=== PATIENT | male | born 1930 | race Caucasian/White ===

== ENCOUNTER 2017-01-14 09:43 | Inpatient (IN) ==
[~2017-01-14 09:43] MED LIST: SODIUM CHLORIDE 0.9% 1,000 ML IV SCH
--- NOTE | 2017-01-14 12:20 | History and Physical Update ---
Sedation H&P Update - History and Physical H&P was reviewed, the patient examined and there: are no changes in the patients condition since last H&P was completed. - Dictation Physical: refer to scanned H&P - Physical Exam Mental Status: alert and oriented Heart: regular rate and rhythm Lung: clear to auscultation Abdomen: within normal limits Vitals: within normal limits - Sedation Plan for Sedation: moderate Patient Consent: Procedure disscussed with patient and patinet has consented., Risks and benefits were discussed with patient,including infection,, bleeding, injury to surrounding structures, seizure, temporary nerve, Patient understands and accepts potential risks/benefits and agrees to, proceed. ASA Class: II Airway Assessment: Class II: Soft palate, uvula, fauces visible
[2017-01-14] MEDS ORDERED: MEPERIDINE 25 MG/1 ML VIAL ONE ×2 (12:26→12:29)
[2017-01-14] MEDS ORDERED: MIDAZOLAM 10 MG/2 ML VIAL ONE (12:27)
--- NOTE | 2017-01-14 12:54 | Event Note ---
Event note Synchronized cardioversion procedure Preop diagnosis recurrent atrial fibrillation Postop diagnosis same The patient was reloaded with amiodarone and takes Coumadin for chronic anticoagulation. The cardioversion procedure discussed with the patient and with his Augusta at the office and again at the hospital. All questions answered and consent form was signed. Continuous O2 sat monitoring was performed. The patient received a total dose of 3 mg IV Versed to achieve and maintain adequate anesthesia. Apical and sternal patches were placed. Using the biphasic Zoll synchronized cardioversion achieved with 200 J. He promptly returned to steady sinus rhythm. Unfortunately, he went back in atrial fibrillation. A second synchronized cardioversion with 200 J was done and he converted to sinus rhythm. However, in less than 5 minutes he went back into atrial fib. Blood pressure 164/72 pulses 70-80 and irregular O2 sat 96% on 2 L. He is beginning to lighten. There were no obvious complications. Plan Admit to telemetry IV amiodarone Then make another attempt at cardioversion. This patient will need a dual- chamber pacemaker with ATP capabilities for backup rate support. He has a long history of developing marked sinus bradycardia when on amiodarone. Findings discussed with patient's Augusta and daughter Carmen.
--- NOTE | 2017-01-14 13:01 | Cardiology History & Physical ---
History of Present Illness History of present illness: History and physical 86-year-old man with sick sinus syndrome and history of recurrent atrial fibrillation. He presented today for synchronized cardioversion. He was successfully cardioverted, but would not hold, and went back into atrial fibrillation. This patient has developed medication induced bradycardia which is necessary to maintain sinus rhythm. He will need a pacemaker implant for backup rate support once sinus rhythm has been restored. The plan is to admit for IV amiodarone and then make another cardioversion attempt and then proceed with dual-chamber pacemaker. The patient has symptomatic bradycardia while on amiodarone and he is symptomatic with atrial fibrillation. 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 Status post right carotid endarterectomy by Dr. Quach September 2012. He did have atrial fibrillation September 16, 2014 converted at the time of amiodarone with loading. Chronic GE reflux taking Nexium 40 mg daily. He avoids all bedtime snacks and has dinner by 6 PM. Status post two-vessel CABG November 25, 2007 with LEE graft to LAD, vein graft to the obtuse minor branch and vein graft to right coronary by Dr. Matta. Normal Lexiscan cardiac stress test October 18, 2016 ejection fraction 60%. Status post left knee arthroscopy October 31, 2016 at [facility] by Dr. Ayden redd. He developed postop atrial fib at that time. Remote tobacco abuse. History of cardioversion 3 remote tobacco abuse Chronic anticoagulation Chronic hypertension Plan Admit to telemetry IV amiodarone infusion, then cardioversion Then proceed with dual-chamber pacemaker for backup rate support Home Medications Medication Instructions Recorded Confirmed Type Amiodarone HCl 200 mg PO BID 12/12/14 01/14/17 History Aspirin [Ecotrin] 325 mg PO DAILY 12/12/14 01/14/17 History Ketoprofen 75 mg PO BID 12/12/14 01/14/17 History Nisoldipine 17 mg PO DAILY 12/12/14 01/14/17 History Potassium Chloride 10 meq PO DAILY 12/12/14 01/14/17 History Simvastatin 40 mg PO DAILY 12/12/14 01/14/17 History Warfarin [Coumadin] 2 mg PO DAILY@1800 12/12/14 01/14/17 History Minocycline [Minocin] 50 mg PO DAILY 01/13/17 01/14/17 History Polyvinyl Alcohol [Artificial 1 drop BOTH EYES DIRECTED 01/14/17 01/14/17 History Tears] Tear Support 3 tablet PO DAILY 01/14/17 01/14/17 History Valsartan/Hctz 160-12.5 [Diovan 1 tablet PO DAILY 01/14/17 01/14/17 History Hct 160-12.5] Allergies Allergy/AdvReac Type Severity Reaction Status Date / Time No Known Allergies Allergy Verified 06/05/16 08:30 Medical,Surgical,& Family Hx - Medical History Cardio: History of: Cardiac Dysrhythmia (A FIB), Hypertension, Cardiovascular Problems (CABG) Neurology: History of: Cerebrovascular Accident (LIGHT LT WEAKNESS), TIA ( SEVERAL) No history of: Seizures HEENT: History of: Ear Problem (BILATERAL HEARING AIDS), Eye Problem (GLASSES) Endocrine: History of: Dyslipidemia Gastrointestinal: History of: GERD, Polyps (1?) - Surgical History Cardiac Surgeries: Sugical HX of: Cardiac Catheterization HEENT Surgeries: Surgical HX of: Eye Surgery (BILATERAL CATARACT) Abdominal Surgeries: Surgical HX of: Appendectomy, Colonoscopy, Hernia Repair ( X2) - Family History Family History: Reports;: Family Heart Disease (FATHER [place],), Family Psychiatric Problems (FATHER, BROTHERS) - Social History Smoking Status: Former smoker Frequency of Alcohol Use: Frequently Type of Drug Use: None Cardiology Physical Exam - Constitutional Vitals: Vital Signs Pulse Resp BP Pulse Ox 75 20 171/87 98 01/14/17 11:20 01/14/17 11:20 01/14/17 11:20 01/14/17 11:20 Intake and Output 01/13/17 01/14/17 01/14/17 23:59 07:59 15:59 Other: Weight 75.75 kg Patient Weight 01/14/17 23:59 Weight 75.75 kg
[2017-01-14] MEDS ORDERED: AMIODARONE INJ 150 MG in DEXTROSE 5% 100 ML IV ONE (15:30)
[2017-01-14] MEDS ORDERED: AMIODARONE INJ 450 MG in DEXTROSE 5% 241 ML IV SCH ×2 (16:00→23:30)
[2017-01-14] MEDS ORDERED: CLORAZEPATE 3.75 MG TABLET PO PRN (17:04)
--- NOTE | 2017-01-14 17:10 | Electrophysiology Consultation ---
History of Present Illness - Data of Consult Patient: new to practice Consult date: 01/14/17 Requesting Physician: Ron Iglesias - Consult Narrative Reason for consult: AF, tachybrady History of present illness: Mr. Kendrick is a 86 year old male, followed by dr. Iglesias. H/o mildly symptomatic PAF, then persistent AF. Antiarrhythmic options were limited by baseline sinus bradycardia. He was admitted for cardioversion today, but had IRAF. IV amiodarone loading was started and he was admitted to telemetry. He had cardioversions before and he also converted back to sinus, in the past, with amiodarone loading. He had parietal lobe stroke August 2012, right carotid endarterectomy by Dr. Quach September 2012, GERD on PPI. CAD, status post two-vessel CABG November 25, 2007 with LEE graft to LAD, vein graft to the obtuse minor branch and vein graft to right coronary by Dr. Matta. Normal Lexiscan cardiac stress test October 18, 2016 ejection fraction 60%. Status post left knee arthroscopy October 31, 2016 at [facility] by Dr. Ayden redd. He developed postop atrial fib at that time. Remote tobacco abuse and he drinks ETOH regularly. HTN, controlled. Current and prior EKG shows sinus bradycardia, and atrial fibrillation. Normal QTC, anterolateral repolarization abnormalities. Mild ICVD, with poor RWP. He is feeling fine currently, amiodarone drip infusing, still in atrial fibrillation, heart rate well controlled. Has occasional lower extremity swelling, but otherwise he is able to perform regular activities. CC: Ron Iglesias MD - Home Medications and Allergies Home Medications: Home Medications Medication Instructions Recorded Confirmed Type Amiodarone HCl 200 mg PO BID 12/12/14 01/14/17 History Aspirin [Ecotrin] 325 mg PO DAILY 12/12/14 01/14/17 History Ketoprofen 75 mg PO BID 12/12/14 01/14/17 History Nisoldipine 17 mg PO DAILY 12/12/14 01/14/17 History Potassium Chloride 10 meq PO DAILY 12/12/14 01/14/17 History Simvastatin 40 mg PO DAILY 12/12/14 01/14/17 History Warfarin [Coumadin] 2 mg PO DAILY@1800 12/12/14 01/14/17 History Minocycline [Minocin] 50 mg PO DAILY 01/13/17 01/14/17 History Polyvinyl Alcohol [Artificial 1 drop BOTH EYES DIRECTED 01/14/17 01/14/17 History Tears] Tear Support 3 tablet PO DAILY 01/14/17 01/14/17 History Valsartan/Hctz 160-12.5 [Diovan 1 tablet PO DAILY 01/14/17 01/14/17 History Hct 160-12.5] Allergies/Adverse Reactions: Allergies Allergy/AdvReac Type Severity Reaction Status Date / Time No Known Allergies Allergy Verified 06/05/16 08:30 Medical,Surgical,& Family Hx - Medical History Cardio: History of: Cardiac Dysrhythmia (A FIB), Hypertension, Cardiovascular Problems (CABG) Neurology: History of: Cerebrovascular Accident (LIGHT LT WEAKNESS), TIA ( SEVERAL) No history of: Seizures HEENT: History of: Ear Problem (BILATERAL HEARING AIDS), Eye Problem (GLASSES) Endocrine: History of: Dyslipidemia Gastrointestinal: History of: GERD, Polyps (1?) - Surgical History Cardiac Surgeries: Sugical HX of: Cardiac Catheterization HEENT Surgeries: Surgical HX of: Eye Surgery (BILATERAL CATARACT) Abdominal Surgeries: Surgical HX of: Appendectomy, Colonoscopy, Hernia Repair ( X2) - Family History Family History: Reports;: Family Heart Disease (FATHER [place],), Family Psychiatric Problems (FATHER, BROTHERS) - Social History Smoking Status: Former smoker Frequency of Alcohol Use: Frequently Type of Drug Use: None 12 point system: reviewed and no additional remarkable complaints except as stated Exam - Constitutional Vitals: Period Temp Pulse Resp BP Sys/Castillo Pulse Ox Last 24 Hr 75 20 171/87 98 General appearance: normal weight, no acute distress - Head Head exam: Present: normal inspection, normocephalic - Eye Eye exam: Absent: conjunctival injection, scleral icterus Pupils: Absent: dilated - ENT ENT exam: Present: normal external ear exam - Neck Neck exam: Present: normal inspection - Respiratory Respiratory exam: Present: wheezes - Cardiovascular Cardiovascular exam: Present: irregular rhythm, systolic murmur. Absent: JVD - GI/Abdominal GI/Abdominal exam: Present: normal bowel sounds. Absent: distended - Extremities Exam Extremities exam: Present: normal inspection, normal capillary refill, edema (1+ ) - Back Exam Back exam: Present: normal inspection - Neurological Exam Neurological exam: Present: alert, oriented X3 - Psychiatric Psychiatric exam: Present: normal affect, normal mood - Skin Skin exam: Present: normal color, warm. Absent: cyanosis Results - Labs Lab Results: I have reviewed the past 24 hour labs Assessment and Plan (1) SSS (sick sinus syndrome) Status: Acute Current Visit: Yes (2) Persistent atrial fibrillation Status: Acute Assessment and plan: 86-year-old male, followed by Dr. Iglesias. Sick sinus syndrome, tachybradycardia , persistent, symptomatic atrial fibrillation. CAD, status post CABG, preserved ejection fraction. Hypertension, EtOH, hyperlipidemia, prior CVA. -Discussed risks and benefits of management options. We will plan to proceed with dual-chamber pacemaker implantation. Plan Fri PM, conscious sedation -Continue amiodarone loading, may switch to p.o. tomorrow. Keep on telemetry, history of symptomatic bradycardia -Chest x-ray. -Echo. Had IRAF after DCCV. If he has advanced atrial remodeling, long-term effective rhythm control may not be feasible and we could consider rate control approach -TFTs normal -Continue Coumadin. Plan to do the device implant at the lower edge of the therapeutic range. History of CVA. Follow INR daily -Tranxene as needed to prevent DT, regular ETOH Current Visit: Yes (3) CAD (coronary artery disease) Status: Acute Current Visit: Yes Specialty Discharge - Follow Up or Referrals
[2017-01-14 18:35] LABS: INR 2.4
[2017-01-14 18:38] LABS: PT Patient Result 26.4 SECS
[2017-01-14] MEDS: POLYVINYL ALCOHOL 1.4% OPH SOLN 15 ML BOTTLE BOTH EYES SCH (21:00)
[2017-01-15 05:54] LABS: Basophils % 0.2 % (0.0-0.8); Eosinophils # 0.2 10*3/uL (0.0-0.87); Eosinophils % 2.2 % (0.00-10.9); Hematocrit 43.8 VOL% (42.0-52.0); Immature Granulocytes % 0.5 %; Immature Granulocytes Absolute 0.05 #; Lymphocytes # 1.2 10*3/uL (1.4-4.0); Lymphocytes % 13.4 % (21.2-54.2); Mean Corpuscular HGB Conc 34.2 GM/DL (32-36); Mean Corpuscular Hemoglobin 33 PG (27-34); Mean Platelet Volume 12.2 FL (9.6-12.0); Monocytes # 0.9 10*3/uL (0.11-0.8); Monocytes % 9.4 % (1.7-12.7); Neutrophils # 6.8 10*3/uL (1.4-7.4); Neutrophils % 74.3 % (38.7-73.9); Platelet Count 165 T/CUMM (130-400); Red Blood Count 4.61 MC/CUMM (3.8-5.5); Red Cell Distribution Width 14.2 % (9.3-17.3); White Blood Count 9.2 T/CUMM (4-12)
[2017-01-15 06:14] LABS: INR 2.4
[2017-01-15 06:21] LABS: PT Patient Result 26.8 SECS
[2017-01-15 06:24] LABS: Calcium 8.7 MG/DL (8.5-10.1); Magnesium 2.3 MG/DL (1.8-2.4); Osmolality,Calculated 281.4 MOS/KG (273-304); Potassium 3.7 MMOL/L (3.5-5.1)
--- NOTE | 2017-01-15 07:14 | XRay Report ---
History: Preop pacemaker placement. On amiodarone therapy Date: 01/15/2017 Study: Chest x-ray PA and lateral Comparison exam: August 08, 2015 chest x-ray The cardiac silhouette is not enlarged. The mediastinal contours are unchanged from the previous study in this patient status post prior median sternotomy. There is mild aortic arch calcification. The pulmonary vasculature is not engorged. There is no pleural effusion. There is no acute infiltrate. There are old rib fractures on the right. There is moderate thoracic spondylosis. Impression: No acute cardiopulmonary process compared to the previous study. No adverse interval change PROCEDURE INTERPRETED AT [facility] DEPARTMENT OF RADIOLOGY Final Report Signed by: Dr. Elisa Pineda
--- NOTE | 2017-01-15 07:24 | EKG Report ---
Stationary ECG Study 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
--- NOTE | 2017-01-15 08:09 | EKG Report ---
Stationary ECG Study 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
--- NOTE | 2017-01-15 08:16 | Electrophysiology Progress Not ---
Assessment and Plan (1) SSS (sick sinus syndrome) Status: Acute Current Visit: Yes (2) Persistent atrial fibrillation Status: Acute Assessment and plan: 86-year-old male, followed by Dr. Iglesias. Sick sinus syndrome, tachybradycardia , persistent, symptomatic atrial fibrillation. CAD, status post CABG, preserved ejection fraction. Hypertension, EtOH, hyperlipidemia, prior CVA. TFTs normal 01/14: DCCV dr. Iglesias, IRAF -Continue Coumadin 1 mg nightly. Keep the INR at the lower edge of the therapeutic range. Plan to do the device implant on uninterrupted anticoagulation, history of CVA -Keep on telemetry. History of symptomatic bradycardia, now, moderate sinus bradycardia after pharmacological cardioversion. -Switch amiodarone to 400 mg p.o. twice daily. -Follow-up echo. -Plan for dual-chamber pacemaker implant Friday. Sick sinus syndrome , tachybradycardia. -Tranxene as needed to prevent DT, regular ETOH Current Visit: Yes (3) CAD (coronary artery disease) Status: Acute Current Visit: Yes Electrophysiology Subjective Interval history: He converted back to sinus bradycardia, with IV amiodarone. He is feeling fine. INR 2.4. Exam - Constitutional Vitals: Period Temp Pulse Resp BP Sys/Castillo Pulse Ox Last 24 Hr 97.4 F-98.3 F 49-75 16-20 120-173/59-87 96-100 General appearance: normal weight, no acute distress - Head Head exam: Present: normal inspection, normocephalic - Eye Eye exam: Absent: conjunctival injection, scleral icterus Pupils: Absent: dilated - ENT ENT exam: Present: normal external ear exam - Neck Neck exam: Present: normal inspection - Respiratory Respiratory exam: Present: clear to auscultation bilaterally. Absent: chest wall tenderness - Cardiovascular Cardiovascular exam: Present: regular rate and rhythm, systolic murmur. Absent : JVD - GI/Abdominal GI/Abdominal exam: Present: normal bowel sounds. Absent: distended - Extremities Exam Extremities exam: Present: normal inspection, normal capillary refill. Absent: edema - Back Exam Back exam: Present: normal inspection - Neurological Exam Neurological exam: Present: alert, oriented X3 - Psychiatric Psychiatric exam: Present: normal affect, normal mood. Absent: anxious - Skin Skin exam: Present: normal color, warm. Absent: cyanosis Results - Labs CBC & BMP: 01/15/17 05:22 01/15/17 05:22 Lab Results: I have reviewed the past 24 hour labs Specialty Discharge - Follow Up or Referrals
[2017-01-15] MEDS: AMIODARONE 200 MG TABLET PO SCH ×2 (08:19→20:25)
[2017-01-15] MEDS: VALSARTAN/HCTZ 160-12.5 MG TABLET PO SCH (08:19)
[2017-01-15] MEDS: NISOLDIPINE 17 MG PO SCH (08:19)
[2017-01-15] MEDS: POTASSIUM CHLORIDE 10 MEQ TABLET PO SCH (08:19)
[2017-01-15] MEDS: SIMVASTATIN 40 MG TABLET PO SCH (08:20)
[2017-01-15] MEDS ORDERED: ASPIRIN EC 325 MG TABLET PO SCH (09:00)
[2017-01-15] MEDS: POLYVINYL ALCOHOL 1.4% OPH SOLN 15 ML BOTTLE BOTH EYES SCH (14:44)
[2017-01-15] MEDS ORDERED: hydrALAZINE 20 MG/1 ML VIAL IV PRN (16:13)
--- NOTE | 2017-01-15 16:13 | Cardiology Progress Note ---
Shilo Burrell Lesley, ANITA, am scribing for, and in the presence of, Eleni Weston DO 16:13. Assessment and Plan - Time spent with patient Time spent with patient: Greater than 30 minutes (Due to assessment, plan, and documentation.) (1) Hypertension Status: Chronic Assessment and plan: SEE PLAN OF CARE LISTED BELOW Current Visit: No (2) SSS (sick sinus syndrome) Status: Acute Assessment and plan: SEE PLAN OF CARE LISTED BELOW Current Visit: Yes (3) Persistent atrial fibrillation Status: Acute Assessment and plan: SEE PLAN OF CARE LISTED BELOW Current Visit: Yes (4) CAD (coronary artery disease) Status: Chronic Assessment and plan: SEE PLAN OF CARE LISTED BELOW Current Visit: Yes Qualifiers: Coronary Disease-Associated Artery/Lesion type: [place] artery [place] vs. 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 Iglesias Summary: Mr. Kendrick is 86-year-old WM known to Dr. Iglesias. He has a history of sick sinus syndrome and persistent, symptomatic atrial fibrillation. The patient presented for cardioversion and was successfully cardioverted, but quickly returned to atrial fibrillation. 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 Matta. Lexiscan cardiac stress test 09/2016 was normal, with EF 60%. History of cardioversion 3, chronic anticoagulation, chronic hypertension, and GERD. Antiarrhythmic options have been limited by baseline sinus bradycardia. Patient was seen today sitting up in a chair. He denies complaints shortness of breath chest discomfort. He is scheduled for dual-chamber pacemaker to be performed by Dr. Weeks on 01/17/17. The patient has been converted from amiodarone drip to oral amiodarone and has tolerated this well. Echocardiogram is pending. Telemetry monitoring reveals sinus bradycardia and atrial fibrillation. Blood pressure is uncontrolled 177/79. Labs reviewed: H&H 15 and 43, INR 2.4 electrolytes WNL, creatinine 1.0. Chest x-ray is unchanged from previous and defines no acute cardiopulmonary process. ASSESSMENT/PLAN: 1. SICK SINUS SYNDROME -continue amiodarone, continue telemetry monitoring, anticipate dual-chamber pacemaker placement this week. 2. PERSISTENT ATRIAL FIBRILLATION -continue amiodarone, to need telemetry monitoring, continue Coumadin. 3. HYPERTENSION -uncontrolled, continue medications, monitor and adjust meds accordingly 4. DYSLIPIDEMIA -continue statin and cardiac diet. 5. CAD -continue aspirin, medical management. 6. ALCOHOL ABUSE -continue Tranxene. 7. CHRONIC ANTICOAGULATION -continue Coumadin monitor INRs. Mr. 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 He has a history of coronary artery disease in 2007 he received a bypass by Dr. Matta. He is followed out in outpatient clinic by my partner Dr. Iglesias he is here now for amiodarone to DC cardioversion after failed DC cardioversion with hopes of implanting a dual-chamber pacemaker on Friday by Dr. Heredia. This will be done on anticoagulation. The patient has no complaints at this time. He is back in sinus rhythm at this time sinus bradycardia. Exam (Progress Note) - Constitutional Vitals: Period Temp Pulse Resp BP Sys/Castillo Pulse Ox Last 24 Hr 97.4 F-98.3 F 49-68 16-18 120-177/59-82 95-100 Exam: General: Appears well with no apparent distress. Pleasant and cooperative. Appears comfortable. HEENT: PERRL, normocephalic, atraumatic. Mucous membranes moist. No jaundice noted. Conjunctiva moist and clear, sclerae anicteric. Neck: No JVD/HJR, no thyromegaly or lymphadenopathy noted. No carotid bruit appreciated. Cardiac: Irregular rate and rhythm. No murmur rub or gallop. PMI is nondisplaced. Lungs: Clear to auscultation without accessory muscle use to assist the respiratory pattern. No oxygen required Abdomen: Soft, bowel sounds normoactive. Nontender and nondistended. No abdominal bruit or thrill noted. No masses noted. Musculoskeletal: No fluid collection. Full range of motion is noted to all extremities. Extremities: No clubbing, cyanosis noted. No edema noted. Upper extremity pulses 2+. Lower extremity pulses 2+. Capillary refill less than 3 seconds. Skin: No unusual lesions or rashes. No skin breakdown appreciated. Neuro: Awake, alert and oriented 3. Moves all extremities well without hemiparesis or paralysis. No essential tremor is appreciated. Result/EKG - Labs CBC & BMP: 01/15/17 05:22 01/15/17 05:22 Lab Results: I have reviewed the past 24 hour labs Labs: Laboratory Results - last 24 hr 01/14/17 01/15/17 01/15/17 18:03 05:22 05:22 WBC 9.2 RBC 4.61 Hgb 15.0 Hct 43.8 MCV 95.0 MCH 33 MCHC 34.2 RDW 14.2 Plt Count 165 MPV 12.2 H Neut % (Auto) 74.3 H Lymph % (Auto) 13.4 L Baldwin % (Auto) 9.4 Eos % (Auto) 2.2 Baso % (Auto) 0.2 Neut # (Auto) 6.8 Lymph # (Auto) 1.2 L Baldwin # (Auto) 0.9 H Eos # (Auto) 0.2 Baso # (Auto) 0.0 Immature Gran % 0.5 Nucleated RBC % 0.0 Immature Gran # 0.05 Nucleated RBCs # 0.00 Immature Plt Fraction 0.0 INR 2.4 2.4 PT Patient/Control Mix 26.4 26.8 Sodium Potassium Chloride Carbon Dioxide Anion Gap BUN Creatinine GFR Calculation BUN/Creatinine Ratio Glucose Calculated Osmolality Calcium Magnesium 01/15/17 05:22 WBC RBC Hgb Hct MCV MCH MCHC RDW Plt Count MPV Neut % (Auto) Lymph % (Auto) Baldwin % (Auto) Eos % (Auto) Baso % (Auto) Neut # (Auto) Lymph # (Auto) Baldwin # (Auto) Eos # (Auto) Baso # (Auto) Immature Gran % Nucleated RBC % Immature Gran # Nucleated RBCs # Immature Plt Fraction INR PT Patient/Control Mix Sodium 140 Potassium 3.7 Chloride 106 Carbon Dioxide 25 Anion Gap 12.7 BUN 21 H Creatinine 1.00 GFR Calculation 73 BUN/Creatinine Ratio 21.00 H Glucose 107 H Calculated Osmolality 281.4 Calcium 8.7 Magnesium 2.3 - Diagnostic Findings Procedure: Chest x-ray: report reviewed by me - EKG EKG shows: atrial fibrillation (Left bundle branch block) Specialty Discharge - Follow Up or Referrals I, Eleni Weston DO, personally performed the services described in this documentation, ascribed by Ronel Lao NP in my presence, and it is both accurate and complete 613 .
[2017-01-15] MEDS ORDERED: WARFARIN 1 MG TABLET PO SCH (18:00)
--- NOTE | 2017-01-15 18:46 | ECHO Report ---
Hubert Kendrick Exam Date: 01/15/2017 09:29 Referring Physician: Technologist: brett Gonzalez ARDMS, RVT Age: 86 Ht (in): 68 Wt (lb): 167 Gender: M Exam Location: [facility] [place] Echo Indications: Essential (primary) hypertension, Atrial fibrillation BP: 173 / 82 HR: 53 Rhythm: Atrial fibrillation Technical Quality: IMPRESSIONS EF is estimated to be 65%. Normal diastolic filling pattern. Tricuspid regurgitation velocities suggest a RVSP of 39 mmHg plus the right atrial pressure. Mild pulmonary valve regurgitation with an end diastolic velocity of 1.5 m/sec. MEASUREMENTS (Male / Female) Normal Values 2D ECHO LV Diastolic Diameter PLAX 5.0 cm 4.2 - 5.9 / 3.9 - 5.3 cm LV Systolic Diameter PLAX 2.6 cm LV Fractional Shortening PLAX 48.4 % IVS Diastolic Thickness 1.0 cm 0.6 - 1.0 / 0.6 - 0.9 cm LVPW Diastolic Thickness 1.0 cm 0.6 - 1.0 / 0.6 - 0.9 cm RV Internal Dim ED PLAX 3.7 cm Aortic Root Diameter 3.3 cm LA Systolic Diameter LX 4.8 cm 3.0 - 4.0 / 2.7 - 3.8 cm DOPPLER TR Peak Velocity 311.0 cm/s TR Peak Gradient 38.7 mmHg FINDINGS Left Ventricle Normal left ventricular size, systolic function and wall thickness, with no regional wall motion abnormalities. EF is estimated to be 65%. Normal diastolic filling pattern. Right Ventricle The right ventricle is normal in size and function. Right Atrium The right atrium is mildly enlarged. Left Atrium The left atrium is mildly enlarged. Mitral Valve Morphologically normal mitral valve. Trace mitral valve regurgitation. Aortic Valve Morphologically normal aortic valve without significant sclerosis or stenosis. There is no aortic regurgitation. Tricuspid Valve Morphologically normal tricuspid valve. Mild tricuspid valve regurgitation. Tricuspid regurgitation velocities suggest a RVSP of 39 mmHg plus the right atrial pressure. Pulmonic Valve Morphologically normal pulmonic valve. Mild pulmonary valve regurgitation with an end diastolic velocity of 1.5 m/sec. Pericardium Normal pericardium without effusion. Aorta Normal ascending aorta dimension. Eleni Weston (Electronically Signed) Final Date: 15 January 2017 18:44
[2017-01-15] MEDS: LORazepam 0.5 MG TABLET PO SCH (20:25)
[2017-01-16 05:30] LABS: Basophils % 0.2 % (0.0-0.8); Eosinophils # 0.1 10*3/uL (0.0-0.87); Eosinophils % 0.9 % (0.00-10.9); Hematocrit 42.6 VOL% (42.0-52.0); Hemoglobin 14.6 GM/DL (14.0-18.0); Immature Granulocytes % 0.3 %; Immature Granulocytes Absolute 0.04 #; Lymphocytes # 1.4 10*3/uL (1.4-4.0); Lymphocytes % 11.6 % (21.2-54.2); Mean Corpuscular HGB Conc 34.3 GM/DL (32-36); Mean Corpuscular Hemoglobin 33 PG (27-34); Mean Corpuscular Volume 95.7 FL (87-102); Mean Platelet Volume 12.2 FL (9.6-12.0); Monocytes # 1.4 10*3/uL (0.11-0.8); Monocytes % 11.9 % (1.7-12.7); Neutrophils % 75.1 % (38.7-73.9); Platelet Count 174 T/CUMM (130-400); Red Blood Count 4.45 MC/CUMM (3.8-5.5); Red Cell Distribution Width 14.2 % (9.3-17.3)
[2017-01-16 05:58] LABS: INR 2.1
[2017-01-16 06:02] LABS: PT Patient Result 23.3 SECS
[2017-01-16 06:03] LABS: Magnesium 2.2 MG/DL (1.8-2.4); Osmolality,Calculated 282.3 MOS/KG (273-304); Potassium 3.7 MMOL/L (3.5-5.1)
[2017-01-16] MEDS ORDERED: ceFAZolin 1,000 MG VIAL IRRIG ONE (08:17)
--- NOTE | 2017-01-16 08:22 | EKG Report ---
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
--- NOTE | 2017-01-16 08:22 | History and Physical Update ---
Sedation H&P Update - History and Physical H&P was reviewed, the patient examined and there: are no changes in the patients condition since last H&P was completed. - Dictation Physical: refer to scanned H&P - Physical Exam Mental Status: alert and oriented Heart: other (bradycardic) Lung: clear to auscultation Abdomen: within normal limits Vitals: within normal limits - Sedation Plan for Sedation: moderate Patient Consent: Procedure disscussed with patient and patinet has consented., Risks and benefits were discussed with patient,including infection,, bleeding, injury to surrounding structures, seizure, temporary nerve, Patient understands and accepts potential risks/benefits and agrees to ASA Class: III Airway Assessment: Class II: Soft palate, uvula, fauces visible
[2017-01-16] MEDS: POTASSIUM CHLORIDE 10 MEQ TABLET PO SCH (08:52)
[2017-01-16] MEDS: NISOLDIPINE 17 MG PO SCH (08:52)
[2017-01-16] MEDS: SIMVASTATIN 40 MG TABLET PO SCH (08:52)
[2017-01-16] MEDS: LORazepam 0.5 MG TABLET PO SCH ×2 (08:52→20:57)
[2017-01-16] MEDS: VALSARTAN/HCTZ 160-12.5 MG TABLET PO SCH (08:52)
[2017-01-16] MEDS: ASPIRIN EC 81 MG TABLET PO SCH (08:52)
[2017-01-16] MEDS: AMIODARONE 200 MG TABLET PO SCH ×2 (08:54→20:58)
[2017-01-16] MEDS ORDERED: HEPARIN/NACL 0.9% 2 UNITS/ML 500 ML IV ONE (09:13)
[2017-01-16] MEDS ORDERED: fentaNYL 100 MCG/2 ML VIAL ONE (09:13)
[2017-01-16] MEDS ORDERED: MIDAZOLAM 2 MG/2 ML VIAL ONE (09:13)
[2017-01-16] MEDS ORDERED: LIDOCAINE 1% 20 ML VIAL ONE (09:13)
[2017-01-16] MEDS ORDERED: ceFAZolin 1,000 MG VIAL ONE (09:13)
[2017-01-16] MEDS ORDERED: diphenhydrAMINE 50 MG/1 ML VIAL ONE (09:43)
[2017-01-16] MEDS ORDERED: TISSUE ADHESIVE 1 EACH APPLICATOR TOP ONE (10:07)
[2017-01-16] MEDS ORDERED: oxyCODONE/ACETAMINOPHEN 5-325 MG TABLET PO PRN (10:19)
--- NOTE | 2017-01-16 10:24 | Cardiac Pacemaker ---
- Preoperative diagnosis Date of Procedure:: 01/16/17 Preoperative Diagnosis: Documented nonreversible symptomatic bradycardia due to , sinus node dysfunction Pre-op Diagnosis: PAf, TACHYBRADY Post-op diagnosis: same Procedure: PROCEDURE SUMMARY DDD pacemaker implant from left axillary vein access. PLAN Bed rest for 4 hours. Routine post pacemaker implant site care and activity restrictions. Do not remove pressure dressing until AM. Portable CXR, EKG stat. CXR PA/Lat, device interrogation in AM. Ancef 1g iv. q8h x2. PROCEDURE Informed consent was obtained and a timeout was performed prior to the procedure. The patient was continuously monitored by ECG, pulse oxymetry and NIBP. 1g iv. Ancef was administered prior to the procedure for antibiotic prophylaxis. Moderate conscious sedation was initiated and maintained with iv. Versed and Fentanyl, for 65 minutes. The left pectoral area was meticulously prepared with ChloroPrep surgical scrub. Sterile draping was applied and Ioban was used to cover the operation site. The image intensifier was draped with a sterile bag and positioned over the patient's chest. After infiltration with 1% lidocaine, an incision was made in the left infraclavicular area, parallel to the deltopectoral groove. The incision was carried down to the level of the pectoral fascia. A subcutaneous pocket was then created with electrocautery and blunt dissection. Hemostasis was then achieved with electrocauteryA micropuncture needle was used to access the left axillary vein under fluoroscopic guidance. The microfilament was used to introduce the micropuncture sheath, which the was used to introduce and advance a long hydrophylic guidewire into the inferior vena cava. A 9 Fr sheath was introduced over the guidewire. The dilator was removed. The right ventricular pacemaker lead was introduced through the sheath. The sheath was then peeled away. The curved stylet was used to move the lead into the right ventricular outflow tract. The stylet was then replaced with a straight stylet and the lead was moved into a stable position on the right ventricular septum. Adequate sensing and pacing threshold was confirmed. The active fixation mechanism was then deployed. Stable signal and pacing threshold was noted, with decrease in pacing impedance. No extracardiac stimulation was noted with high output pacing. The lead was then anchored to the subcutaneous tissue with 2-0 nonabsorbable suture, using the anchoring sleeve near the point of entry to the vein. Another 9 Fr sheath was introduced over the retained guidewire. The dilator was removed. The right atrial pacemaker lead was introduced through the sheath. The sheath was then peeled away. A straight stylet was used to move the lead into the right atrium. The stylet was then replaced with a curved J stylet and the lead was moved into a stable position in the right atrial appendage. Adequate sensing and pacing threshold was confirmed. The active fixation mechanism was then deployed. Stable signal and pacing threshold was noted, with decrease in pacing impedance. No extracardiac stimulation was noted with high output pacing. The lead was then anchored to the subcutaneous tissue with 2-0 nonabsorbable suture, using the anchoring sleeve near the point of entry to the vein. The retained guidewire was removed. The pacemaker generator was attached to the leads and sealed in the prescribed manner. The wound was flushed with Ancef . The generator was placed into the pocket and tied to the pectoral fascia using 2-0 nonabsorbable suture. Stable lead positions were confirmed with fluoroscopy. The wound was closed using a double layer of 2-0 absorbable Vicryl sutures, followed by a subcuticular running suture with 4-0 Monocryl, then Exofin. A sterile, then a pressure dressing was applied. The device was then interrogated and programmed as detailed below. Device Type SN Location Medtronic Advisa DDD pacemaker [id number] Left infraclavicular Lead Position Type SN P/R Threshold Impedance RA RA appendage Medtronic 5076-52 [id number] 2.0 mV 1.5 V @ 0.5 ms 737 Ohm RV RV septum Medtronic 5076-58 [id number] 14.9 mV 1.3 V @ 0.5 ms 861 Ohm The implanted system is MRI conditional. Anesthesia: moderate conscious sedation Surgeon / Physician: Vin Weeks Barber Tool Sharpener: other ([place]) Estimated blood loss: minimal Specimens: none sent Condition: stable Disposition: floor - Medications / Follow-up
--- NOTE | 2017-01-16 11:10 | XRay Report ---
History: Pacemaker lead placement Date: 01/16/2017 Study: Chest x-ray AP portable Comparison exam: 01/15/2017 A left subclavian dual-lead transvenous pacemaker is in generally satisfactory position. There is no pneumothorax. There is cardiomegaly. The mediastinal contours are stable in this patient status post prior median sternotomy. The pulmonary vasculature is not engorged. There is no acute infiltrate. There is no gross pleural effusion. There is mild to moderate thoracic spondylosis. Multiple old rib fractures are noted on the right as before. Impression: No evidence of a pneumothorax following pacemaker placement. Pacemaker leads appear generally well positioned PROCEDURE INTERPRETED AT [facility] DEPARTMENT OF RADIOLOGY Final Report Signed by: Dr. Elisa Pineda
--- NOTE | 2017-01-16 11:12 | EKG Report ---
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
[2017-01-16] MEDS: METOPROLOL TARTRATE 25 MG TABLET PO SCH ×2 (11:39→20:58)
[2017-01-16] MEDS: POLYVINYL ALCOHOL 1.4% OPH SOLN 15 ML BOTTLE BOTH EYES SCH (15:12)
[2017-01-17 05:06] LABS: Basophils % 0.2 % (0.0-0.8); Eosinophils # 0.1 10*3/uL (0.0-0.87); Eosinophils % 0.7 % (0.00-10.9); Hematocrit 42.4 VOL% (42.0-52.0); Hemoglobin 14.5 GM/DL (14.0-18.0); Immature Granulocytes % 0.4 %; Immature Granulocytes Absolute 0.05 #; Lymphocytes # 1.6 10*3/uL (1.4-4.0); Lymphocytes % 13.6 % (21.2-54.2); Mean Corpuscular HGB Conc 34.2 GM/DL (32-36); Mean Corpuscular Hemoglobin 33 PG (27-34); Mean Corpuscular Volume 96.1 FL (87-102); Mean Platelet Volume 12.6 FL (9.6-12.0); Monocytes # 1.4 10*3/uL (0.11-0.8); Monocytes % 11.4 % (1.7-12.7); Neutrophils # 8.9 10*3/uL (1.4-7.4); Neutrophils % 73.7 % (38.7-73.9); Platelet Count 166 T/CUMM (130-400); Red Blood Count 4.41 MC/CUMM (3.8-5.5); Red Cell Distribution Width 14.4 % (9.3-17.3); White Blood Count 12.1 T/CUMM (4-12)
[2017-01-17 05:32] LABS: PT Patient Result 22.2 SECS
[2017-01-17 05:38] LABS: Calcium 8.5 MG/DL (8.5-10.1); Magnesium 2.1 MG/DL (1.8-2.4); Osmolality,Calculated 284.1 MOS/KG (273-304); Potassium 3.7 MMOL/L (3.5-5.1)
--- NOTE | 2017-01-17 07:24 | XRay Report ---
History is lead placement Chest, 2 views Comparison 01/16/2017 The heart is mildly enlarged. Pacemaker is present No pneumothorax or consolidative infiltrates seen Chronic right rib fractures again seen Chronic right scapular fracture noted Impression: pacemaker and mild cardiomegaly without congestive failure PROCEDURE INTERPRETED AT [facility] DEPARTMENT OF RADIOLOGY Final Report Signed by: Dr. Disha Howard
--- NOTE | 2017-01-17 07:25 | EKG Report ---
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
--- NOTE | 2017-01-17 07:47 | Electrophysiology Progress Not ---
Assessment and Plan (1) Persistent atrial fibrillation Status: Acute Assessment and plan: 86-year-old male, followed by Dr. Iglesias. Sick sinus syndrome, tachybradycardia , persistent, symptomatic atrial fibrillation. CAD, status post CABG, preserved ejection fraction. Hypertension, EtOH, hyperlipidemia, prior CVA. TFTs normal 01/14: DCCV dr. Iglesias, IRAF 01/16: DDD PM implant -Resume Coumadin. -May decrease amiodarone to 200 mg daily, after loading complete -Discussed post pacemaker implant activity limitations and implant site care. Wear the sling all time and keep the dressing in place and dry for 1 week. -Follow-up with EP, Dr. Weeks next . -Follow-up on device interrogation. Current Visit: Yes (2) SSS (sick sinus syndrome) Status: Acute Current Visit: Yes (3) CAD (coronary artery disease) Status: Chronic Current Visit: Yes Qualifiers: Coronary Disease-Associated Artery/Lesion type: [place] artery [place] vs. transplanted heart: [place] heart Associated angina: without angina Qualified Code(s): I25.10 - Atherosclerotic heart disease of [place] coronary artery without angina pectoris Electrophysiology Subjective Interval history: He is feeling fine. Chest x-ray confirmed normal lead positions. Telemetry, atrial pacing Removed the pressure dressing, there is no hematoma. Exam - Constitutional Vitals: Period Temp Pulse Resp BP Sys/Castillo Pulse Ox Last 24 Hr 97.8 F-99.1 F 58-60 17-20 106-152/54-78 92-96 General appearance: normal weight, no acute distress - Head Head exam: Present: normal inspection. Absent: contusion - Eye Eye exam: Absent: conjunctival injection, scleral icterus Pupils: Absent: dilated - ENT ENT exam: Present: normal external ear exam - Neck Neck exam: Present: normal inspection - Respiratory Respiratory exam: Present: clear to auscultation bilaterally. Absent: chest wall tenderness - Cardiovascular Cardiovascular exam: Present: regular rate and rhythm, systolic murmur, other ( No pacemaker hematoma, dressing dry intact). Absent: JVD - GI/Abdominal GI/Abdominal exam: Present: normal bowel sounds. Absent: distended - Extremities Exam Extremities exam: Present: normal inspection, normal capillary refill. Absent: edema - Back Exam Back exam: Present: normal inspection - Neurological Exam Neurological exam: Present: alert, oriented X3 - Psychiatric Psychiatric exam: Present: normal affect, normal mood - Skin Skin exam: Present: normal color, warm. Absent: cyanosis Results - Labs CBC & BMP: 01/17/17 04:01 01/17/17 04:01 Lab Results: I have reviewed the past 24 hour labs Quality Measures - VTE Contraindication to Pharmacological VTE Prophylaxis: Already on Theraputic Agent , No Prophylaxis Needed Specialty Discharge - Follow Up or Referrals
[2017-01-17] MEDS: NISOLDIPINE 17 MG PO SCH (10:19)
[2017-01-17] MEDS: LORazepam 0.5 MG TABLET PO SCH (10:20)
[2017-01-17] MEDS: METOPROLOL TARTRATE 25 MG TABLET PO SCH (10:20)
[2017-01-17] MEDS: VALSARTAN/HCTZ 160-12.5 MG TABLET PO SCH (10:20)
[2017-01-17] MEDS: SIMVASTATIN 40 MG TABLET PO SCH (10:20)
[2017-01-17] MEDS: AMIODARONE 200 MG TABLET PO SCH (10:21)
[2017-01-17] MEDS: POTASSIUM CHLORIDE 10 MEQ TABLET PO SCH (10:21)
[2017-01-17] MEDS: ASPIRIN EC 81 MG TABLET PO SCH (10:21)
[2017-01-17 12:28] VITALS: BP 119/68
--- NOTE | 2017-01-17 12:44 | Discharge Summary ---
Shilo Burrell Lesley, NP, am scribing for, and in the presence of, Natasha Edwards NP 12:24. Hospital Course - Hospital Course Hospital Course: SUPERVISOR RECORD PRESS: Dr. Iglesias SUMMARY: Summary: Mr. Kendrick is 86 [address] Iglesias. He has a history of sick sinus syndrome and persistent, symptomatic atrial fibrillation. The patient presented for cardioversion and was successfully cardioverted, but quickly returned to atrial fibrillation. 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 Matta. Lexiscan cardiac stress test 09/2016 was normal, with EF 60%. History of cardioversion 3, chronic anticoagulation, chronic hypertension, and GERD. Antiarrhythmic options have been limited by baseline sinus bradycardia. Echocardiogram revealed EF 65%, normal diastolic filling pattern, RVSP 39 mmHg, mild pulmonary valve regurgitation with an end-diastolic velocity of 1.5 m/sec. 01/16/2017 Dr. Weeks performed a dual-chamber pacemaker implant for sick sinus syndrome and tachybradycardia. Chest x-ray reviewed by Dr. Weeks today confirm normal lead position. The device was interrogated today and found to be working appropriately. Labs reviewed today: INR 2.0, electrolytes WNL, creatinine 1.0, CBC stable. EKG and telemetry strips show atrial pacing. Plan to reduce amiodarone to 200 mg daily. The patient will wear this sling at all times and keep the dressing in place until 1 week follow-up with Dr. Weeks. He will have a device interrogation at the follow-up. DISCHARGE MEDICATIONS: Amiodarone 200 mg daily Aspirin 81 mg p.o. daily Metoprolol 25 mg p.o. twice daily Atorvastatin 40 mg p.o. each evening Valsartan/HCTZ 42328.5 mg p.o. daily Warfarin 1 mg p.o. daily - Time spent with patient Time with patient DS: Greater than 30 minutes (Record review, assessment, and documented) Diagnosis - Discharge Diagnosis (1) Hypertension Status: Chronic (2) SSS (sick sinus syndrome) Status: Resolved (3) Persistent atrial fibrillation Status: Resolved (4) CAD (coronary artery disease) Status: Chronic (5) Dyslipidemia Status: Chronic (6) Alcohol abuse Status: Chronic Specialty Discharge - Follow Up or Referrals Follow up with: Vin Weeks MD [Physician] - 1 Week (Lab PT and INR prior to appointment, BMP, magnesium, CBC. EKG) Discharge Plan - Discharge Data Disposition: Disch To Home/Self Care Condition at Discharge: Stable Discharge Diet: heart healthy Activity: increase activity as tolerated Hygiene: may shower Weight Bearing at Discharge: full weight bearing Contact your physician if you experience:: fever over 101, Redness or swelling, Bleeding - Discharge Medications New Metoprolol Tartrate Tab [Lopressor Tab] 25 mg PO BID #60 tablet oxyCODONE/ACETAMINOPHEN 5-325 [Percocet 5-325] 1 tablet PO Q4H PRN #30 tablet PRN Reason: Pain Moderate (4-7) Amiodarone Tab [Cordarone Tab] 200 mg PO DAILY #30 tablet Continue Warfarin [Coumadin] 2 mg PO DAILY@1800 Potassium Chloride 10 meq PO DAILY Ketoprofen 75 mg PO BID Simvastatin 40 mg PO DAILY Nisoldipine 17 mg PO DAILY Aspirin [Ecotrin] 325 mg PO DAILY Valsartan/Hctz 160-12.5 [Diovan Hct 160-12.5] 1 tablet PO DAILY Minocycline [Minocin] 50 mg PO DAILY Discontinued Amiodarone HCl 200 mg PO BID Tear Support 3 tablet PO DAILY Polyvinyl Alcohol [Artificial Tears] 1 drop BOTH EYES DIRECTED - Follow Up or Referral Follow Up: Vin Weeks MD [Physician] - 1 Week (Lab PT and INR prior to appointment, BMP, magnesium, CBC. EKG) - Forms/Instructions Instructions: Warfarin (By mouth), Cardioversion (DC) Exam - Constitutional Vitals: Period Temp Pulse Resp BP Sys/Castillo Pulse Ox Last 24 Hr 97.8 F-99.1 F 60-60 17-20 106-152/54-78 92-96 Exam: General: Appears well with no apparent distress. Pleasant and cooperative. Appears comfortable. HEENT: PERRL, normocephalic, atraumatic. Mucous membranes moist. No jaundice noted. Conjunctiva moist and clear, sclerae anicteric. Neck: No JVD/HJR, no thyromegaly or lymphadenopathy noted. No carotid bruit appreciated. Cardiac: Paced rate and rhythm. No murmur rub or gallop. Lungs: Clear to auscultation without accessory muscle use to assist the respiratory pattern. No oxygen required Abdomen: Soft, bowel sounds normoactive. Nontender and nondistended. No abdominal bruit or thrill noted. No masses noted. Musculoskeletal: No fluid collection. Full range of motion is noted to all extremities. Dressing intact to left chest wall, sling intact. Extremities: No clubbing, cyanosis noted. No edema noted. Upper extremity pulses 2+. Lower extremity pulses 2+. Capillary refill less than 3 seconds. Skin: No unusual lesions or rashes. No skin breakdown appreciated. Neuro: Awake, alert and oriented 3. Moves all extremities well without hemiparesis or paralysis. No essential tremor is appreciated. Discharge Results Procedures and tests throughout hospitalization: Pending Orders 01/18/17 04:00 Prothrombin Time INR IN AM Labs on day of discharge: Labs from last 24 hours 01/17/17 01/17/17 01/17/17 04:01 04:01 04:01 WBC 12.1 H RBC 4.41 Hgb 14.5 Hct 42.4 MCV 96.1 MCH 33 MCHC 34.2 RDW 14.4 Plt Count 166 MPV 12.6 H Neut % (Auto) 73.7 Lymph % (Auto) 13.6 L [place] % (Auto) 11.4 Eos % (Auto) 0.7 Baso % (Auto) 0.2 Neut # (Auto) 8.9 H Lymph # (Auto) 1.6 [place] # (Auto) 1.4 H Eos # (Auto) 0.1 Baso # (Auto) 0.0 Immature Gran % 0.4 Nucleated RBC % 0.0 Immature Gran # 0.05 Nucleated RBCs # 0.00 Immature Plt Fraction 0.0 INR 2.0 PT Patient/Control Mix 22.2 Sodium 142 Potassium 3.7 Chloride 107 Carbon Dioxide 26 Anion Gap 12.7 BUN 21 H Creatinine 1.00 GFR Calculation 73 BUN/Creatinine Ratio 21.00 H Glucose 89 POC Glucose Calculated Osmolality 284.1 Calcium 8.5 Magnesium 2.1 01/17/17 01/16/17 04:01 19:38 WBC RBC Hgb Hct MCV MCH MCHC RDW Plt Count MPV Neut % (Auto) Lymph % (Auto) [place] % (Auto) Eos % (Auto) Baso % (Auto) Neut # (Auto) Lymph # (Auto) [place] # (Auto) Eos # (Auto) Baso # (Auto) Immature Gran % Nucleated RBC % Immature Gran # Nucleated RBCs # Immature Plt Fraction INR 2.0 PT Patient/Control Mix 22.0 Sodium Potassium Chloride Carbon Dioxide Anion Gap BUN Creatinine GFR Calculation BUN/Creatinine Ratio Glucose POC Glucose 111 H Calculated Osmolality Calcium Magnesium - Imaging and Cardiology Cardiology Procedure: report reviewed by me Procedure: Chest x-ray: report reviewed by me DS: Provider Expected date of discharge: 01/17/17 Jerry Burrell Bonnie E, NP, personally performed the services described in this documentation, ascribed by Ronel Lao NP in my presence, and it is both accurate and complete [id number] .
== END 2017-01-17 13:57 | disposition home or self-care (01) | DRG 243 ==
LOC: N.CL 09:43 → N.TELEN 16:23
PROVIDERS: ADMIT Internal Medicine Cardiovascular Disease; ATTEND Internal Medicine Cardiovascular Disease

== ENCOUNTER 2017-12-02 10:50 | Inpatient (IN) ==
[2017-12-02] MEDS ORDERED: ALBUTEROL 2.5 MG/3 ML NEB RESP TX STA (11:14)
[2017-12-02 11:24] LABS: Basophils % 0.2 % (0.0-0.8); Eosinophils % 0.1 % (0.00-10.9); Hematocrit 44.6 VOL% (42.0-52.0); Hemoglobin 15.2 GM/DL (14.0-18.0); Immature Granulocytes Absolute 0.19 #; Lymphocytes # 1.1 10*3/uL (1.4-4.0); Lymphocytes % 5.7 % (21.2-54.2); Mean Corpuscular HGB Conc 34.1 GM/DL (32-36); Mean Corpuscular Hemoglobin 32 PG (27-34); Mean Corpuscular Volume 93.9 FL (87-102); Mean Platelet Volume 10.5 FL (9.6-12.0); Monocytes # 1.9 10*3/uL (0.11-0.8); Monocytes % 9.9 % (1.7-12.7); Neutrophils # 15.6 10*3/uL (1.4-7.4); Neutrophils % 83.1 % (38.7-73.9); Platelet Count 311 T/CUMM (130-400); Red Blood Count 4.75 MC/CUMM (3.8-5.5); Red Cell Distribution Width 14.4 % (9.3-17.3); White Blood Count 18.7 T/CUMM (4-12)
[2017-12-02 11:32] LABS: Apearance,Urine CLEAR (Clear); Bilirubin,Urine Negative (Negative); Blood, Urine Negative (Negative); Glucose,Urine (UA) Negative (Negative); Ketones,Urine Negative (Negative); Mucus,Urine Occasional /LPF (Occasional); Nitrite,Urine Negative (Negative); Protein,Urine 30 MG/DL; RBC,Urine 5 /HPF (0-4); Squamous Epithelial Cell,Urine Occasional /HPF (0-10); Urine Color Amber (Yellow); Urine Specific Gravity 1.018 (1.001-1.035); WBC,Urine <1 /HPF (0-6)
[2017-12-02 11:41] LABS: INR 2.9
[2017-12-02 11:48] LABS: PT Patient Result 29.9 SECS; Partial Thromboplastin Time 42.6 SECS (0-40)
[2017-12-02 11:49] LABS: Albumin 2.2 G/DL (3.4-5.0); Bilirubin,Total 1.4 MG/DL (0.2-1.0); Calcium 8.6 MG/DL (8.5-10.1); Potassium 3.9 MMOL/L (3.5-5.1); Total Protein 6.5 G/DL (6.4-8.3); Troponin I Only 0.028 NG/ML (0.00-0.045)
[2017-12-02] MEDS ORDERED: methylPREDNISolone SOD SUC 125 MG/2 ML VIAL IV STA (12:09)
[2017-12-02] MEDS ORDERED: LEVOFLOXACIN INJ 500 MG in PREMIX 1 EACH IV STA (12:10)
[2017-12-02 12:27] LABS: ABG Base Excess 1.2 MMOL/L (-2.5-2.5); ABG HCO3 25.4 MMOL/L (20-26); ABG Oxygen Saturation 92.4 % (95-100); ABG PCO2 33.1 MM HG (35-48); ABG PH 7.471 (7.35-7.45); ABG PO2 66.5 MM HG (80-95); ABG TCO2 20.6 MMOL/L (23-27)
[2017-12-02] MEDS ORDERED: SODIUM CHLORIDE 0.9% 1,000 ML IV SCH (13:17)
[2017-12-02] MEDS ORDERED: ONDANSETRON 4 MG/2 ML VIAL IV PRN (13:17)
[2017-12-02] MEDS ORDERED: ACETAMINOPHEN 325 MG TABLET PO PRN (13:17)
[2017-12-02] MEDS ORDERED: ALBUTEROL/IPRATROPIUM 3 ML NEB RESP TX PRN (14:27)
[2017-12-02] MEDS: METHOCARBAMOL 750 MG TABLET PO SCH (15:49)
[2017-12-02] MEDS: NYSTATIN 500,000 UNIT/5 ML UDCUP SWISH/SWAL SCH ×2 (17:43→20:13)
[2017-12-02] MEDS: FUROSEMIDE 40 MG/4 ML VIAL IV SCH (17:43)
[2017-12-02] MEDS: methylPREDNISolone SOD SUC 40 MG/1 ML VIAL IV SCH (17:43)
[2017-12-02] MEDS: WARFARIN 1 MG TABLET PO SCH (17:44)
[2017-12-02] MEDS: DOCUSATE SODIUM 100 MG CAPSULE PO SCH (20:13)
[2017-12-02] MEDS: METOPROLOL TARTRATE 25 MG TABLET PO SCH (20:13)
[2017-12-02] MEDS: ALBUTEROL/IPRATROPIUM 3 ML NEB RESP TX SCH (22:32)
[2017-12-03] MEDS: methylPREDNISolone SOD SUC 40 MG/1 ML VIAL IV SCH ×4 (01:25→21:18)
[2017-12-03] MEDS: ALBUTEROL/IPRATROPIUM 3 ML NEB RESP TX SCH ×4 (01:44→19:47)
[2017-12-03 03:14] LABS: Basophils % 0.1 % (0.0-0.8); Hematocrit 44.2 VOL% (42.0-52.0); Hemoglobin 15.1 GM/DL (14.0-18.0); Immature Granulocytes Absolute 0.16 #; Lymphocytes # 0.5 10*3/uL (1.4-4.0); Lymphocytes % 3.3 % (21.2-54.2); Mean Corpuscular HGB Conc 34.2 GM/DL (32-36); Mean Corpuscular Hemoglobin 32 PG (27-34); Mean Corpuscular Volume 93.4 FL (87-102); Monocytes # 0.5 10*3/uL (0.11-0.8); Monocytes % 3.4 % (1.7-12.7); Neutrophils # 14.3 10*3/uL (1.4-7.4); Neutrophils % 92.2 % (38.7-73.9); Platelet Count 297 T/CUMM (130-400); Red Blood Count 4.73 MC/CUMM (3.8-5.5); Red Cell Distribution Width 14.5 % (9.3-17.3); White Blood Count 15.5 T/CUMM (4-12)
[2017-12-03 03:17] LABS: INR 2.7
[2017-12-03 03:20] LABS: PT Patient Result 27.9 SECS
[2017-12-03 03:39] LABS: Calcium 8.7 MG/DL (8.5-10.1); Osmolality,Calculated 283.4 MOS/KG (273-304); Potassium 3.3 MMOL/L (3.5-5.1)
[2017-12-03 04:01] LABS: Band Neutrophils 1 % (0-10); Lymphocytes 2 % (20-55); Platelet Estimate Adequate; Segmented Neutrophils 95 % (50-85); Total Cells Counted 100
[2017-12-03] MEDS: METHOCARBAMOL 750 MG TABLET PO SCH ×3 (04:59→21:15)
[2017-12-03] MEDS ORDERED: NISOLDIPINE 17 MG PO SCH (09:00)
[2017-12-03] MEDS ORDERED: PANTOPRAZOLE 40 MG TABLET PO SCH (09:00)
[2017-12-03] MEDS: FUROSEMIDE 40 MG/4 ML VIAL IV SCH (09:07)
[2017-12-03] MEDS: NYSTATIN 500,000 UNIT/5 ML UDCUP SWISH/SWAL SCH ×4 (09:08→21:18)
[2017-12-03] MEDS: POTASSIUM CHLORIDE 10 MEQ TABLET PO SCH (09:08)
[2017-12-03] MEDS: ASPIRIN EC 325 MG TABLET PO SCH (09:08)
[2017-12-03] MEDS: PANTOPRAZOLE 40 MG TABLET PO SCH (09:08)
[2017-12-03] MEDS: POTASSIUM CHLORIDE 20 MEQ TABLET PO PRN ×3 (09:08→13:47)
[2017-12-03] MEDS: CHOLECALCIFEROL 1,000 UNIT TABLET PO SCH (09:08)
[2017-12-03] MEDS: METOPROLOL TARTRATE 25 MG TABLET PO SCH ×2 (09:08→21:14)
[2017-12-03] MEDS: VALSARTAN/HCTZ 160-12.5 MG TABLET PO SCH (09:08)
[2017-12-03] MEDS: DOCUSATE SODIUM 100 MG CAPSULE PO SCH ×2 (09:08→21:14)
[2017-12-03] MEDS: LEVOFLOXACIN INJ 500 MG in PREMIX 1 EACH IV SCH (09:11)
[2017-12-03] MEDS ORDERED: WARFARIN 1 MG TABLET PO SCH (18:00)
[2017-12-04] MEDS: ALBUTEROL/IPRATROPIUM 3 ML NEB RESP TX SCH ×4 (02:17→20:17)
[2017-12-04 05:32] LABS: Basophils % 0.1 % (0.0-0.8); Hematocrit 42.8 VOL% (42.0-52.0); Hemoglobin 14.6 GM/DL (14.0-18.0); Immature Granulocytes % 2.1 %; Immature Granulocytes Absolute 0.67 #; Lymphocytes # 0.9 10*3/uL (1.4-4.0); Lymphocytes % 2.8 % (21.2-54.2); Mean Corpuscular HGB Conc 34.1 GM/DL (32-36); Mean Corpuscular Hemoglobin 32 PG (27-34); Mean Corpuscular Volume 94.5 FL (87-102); Mean Platelet Volume 11.3 FL (9.6-12.0); Monocytes % 3.3 % (1.7-12.7); Neutrophils # 28.7 10*3/uL (1.4-7.4); Neutrophils % 91.7 % (38.7-73.9); Platelet Count 402 T/CUMM (130-400); Red Blood Count 4.53 MC/CUMM (3.8-5.5); Red Cell Distribution Width 14.7 % (9.3-17.3); White Blood Count 31.3 T/CUMM (4-12)
[2017-12-04 06:01] LABS: INR 3.3
[2017-12-04 06:26] LABS: Band Neutrophils 2 % (0-10); Hypochromasia Slight; Ovalocytes Slight; Platelet Estimate Adequate; Segmented Neutrophils 96 % (50-85); Total Cells Counted 100
[2017-12-04] MEDS: methylPREDNISolone SOD SUC 40 MG/1 ML VIAL IV SCH ×3 (06:31→21:15)
[2017-12-04 06:32] LABS: Calcium 8.6 MG/DL (8.5-10.1); Osmolality,Calculated 290.4 MOS/KG (273-304)
[2017-12-04] MEDS: FUROSEMIDE 40 MG/4 ML VIAL IV SCH ×2 (09:43→15:40)
[2017-12-04] MEDS: DOCUSATE SODIUM 100 MG CAPSULE PO SCH ×2 (09:44→21:14)
[2017-12-04] MEDS: VALSARTAN/HCTZ 160-12.5 MG TABLET PO SCH (09:44)
[2017-12-04] MEDS: NYSTATIN 500,000 UNIT/5 ML UDCUP SWISH/SWAL SCH ×4 (09:44→21:14)
[2017-12-04] MEDS: POTASSIUM CHLORIDE 10 MEQ TABLET PO SCH (09:44)
[2017-12-04] MEDS: METOPROLOL TARTRATE 25 MG TABLET PO SCH ×2 (09:44→21:14)
[2017-12-04] MEDS: PANTOPRAZOLE 40 MG TABLET PO SCH (09:44)
[2017-12-04] MEDS: CHOLECALCIFEROL 1,000 UNIT TABLET PO SCH (09:44)
[2017-12-04] MEDS: METHOCARBAMOL 750 MG TABLET PO SCH ×2 (09:44→21:14)
[2017-12-04] MEDS: LEVOFLOXACIN INJ 500 MG in PREMIX 1 EACH IV SCH (09:45)
[2017-12-04] MEDS: ASPIRIN EC 325 MG TABLET PO SCH (09:45)
[2017-12-04] MEDS: WARFARIN 1 MG TABLET PO SCH (17:43)
[2017-12-05] MEDS: ALBUTEROL/IPRATROPIUM 3 ML NEB RESP TX SCH ×4 (00:31→18:52)
[2017-12-05 04:01] LABS: Basophils % 0.1 % (0.0-0.8); Hematocrit 41.3 VOL% (42.0-52.0); Hemoglobin 13.8 GM/DL (14.0-18.0); Immature Granulocytes % 1.5 %; Immature Granulocytes Absolute 0.36 #; Lymphocytes # 0.6 10*3/uL (1.4-4.0); Lymphocytes % 2.6 % (21.2-54.2); Mean Corpuscular HGB Conc 33.4 GM/DL (32-36); Mean Corpuscular Hemoglobin 32 PG (27-34); Mean Corpuscular Volume 96.7 FL (87-102); Mean Platelet Volume 10.8 FL (9.6-12.0); Monocytes # 0.8 10*3/uL (0.11-0.8); Monocytes % 3.5 % (1.7-12.7); Neutrophils # 22.1 10*3/uL (1.4-7.4); Neutrophils % 92.3 % (38.7-73.9); Platelet Count 364 T/CUMM (130-400); Red Blood Count 4.27 MC/CUMM (3.8-5.5); Red Cell Distribution Width 14.7 % (9.3-17.3)
[2017-12-05 04:17] LABS: PT Patient Result 51.6 SECS
[2017-12-05 04:19] LABS: INR 5.2
[2017-12-05 04:30] LABS: Calcium 8.4 MG/DL (8.5-10.1); Osmolality,Calculated 295.4 MOS/KG (273-304); Potassium 3.3 MMOL/L (3.5-5.1)
[2017-12-05 05:42] LABS: Hypochromasia 1+; Lymphocytes 4 % (20-55); Platelet Estimate Adequate; Segmented Neutrophils 94 % (50-85); Total Cells Counted 100
[2017-12-05] MEDS: methylPREDNISolone SOD SUC 40 MG/1 ML VIAL IV SCH ×3 (06:27→21:28)
[2017-12-05] MEDS: ASPIRIN EC 325 MG TABLET PO SCH (09:25)
[2017-12-05] MEDS: CHOLECALCIFEROL 1,000 UNIT TABLET PO SCH (09:25)
[2017-12-05] MEDS: NYSTATIN 500,000 UNIT/5 ML UDCUP SWISH/SWAL SCH ×4 (09:25→21:26)
[2017-12-05] MEDS: FUROSEMIDE 40 MG/4 ML VIAL IV SCH ×2 (09:25)
[2017-12-05] MEDS: METHOCARBAMOL 750 MG TABLET PO SCH ×2 (09:25→21:27)
[2017-12-05] MEDS: DOCUSATE SODIUM 100 MG CAPSULE PO SCH ×2 (09:25→21:27)
[2017-12-05] MEDS: VALSARTAN/HCTZ 160-12.5 MG TABLET PO SCH (09:26)
[2017-12-05] MEDS: POTASSIUM CHLORIDE 10 MEQ TABLET PO SCH (09:26)
[2017-12-05] MEDS: PANTOPRAZOLE 40 MG TABLET PO SCH (09:26)
[2017-12-05] MEDS: LEVOFLOXACIN INJ 500 MG in PREMIX 1 EACH IV SCH (09:27)
[2017-12-05] MEDS: METOPROLOL TARTRATE 25 MG TABLET PO SCH ×2 (11:15→21:26)
[2017-12-05] MEDS ORDERED: WARFARIN 1 MG TABLET PO SCH (18:00)
[2017-12-05] MEDS ORDERED: WARFARIN 2 MG TABLET PO SCH (18:00)
[2017-12-06] MEDS: ALBUTEROL/IPRATROPIUM 3 ML NEB RESP TX SCH ×4 (01:03→19:31)
[2017-12-06 05:31] LABS: Basophils % 0.1 % (0.0-0.8); Hematocrit 41.5 VOL% (42.0-52.0); Hemoglobin 13.7 GM/DL (14.0-18.0); Immature Granulocytes % 1.6 %; Immature Granulocytes Absolute 0.33 #; Lymphocytes # 0.7 10*3/uL (1.4-4.0); Lymphocytes % 3.2 % (21.2-54.2); Mean Corpuscular Hemoglobin 32 PG (27-34); Mean Corpuscular Volume 95.6 FL (87-102); Mean Platelet Volume 10.8 FL (9.6-12.0); Monocytes % 4.6 % (1.7-12.7); Neutrophils % 90.5 % (38.7-73.9); Platelet Count 380 T/CUMM (130-400); Red Blood Count 4.34 MC/CUMM (3.8-5.5); Red Cell Distribution Width 14.6 % (9.3-17.3)
[2017-12-06 05:51] LABS: Calcium 8.6 MG/DL (8.5-10.1); Osmolality,Calculated 296.1 MOS/KG (273-304); Potassium 3.3 MMOL/L (3.5-5.1)
[2017-12-06] MEDS: methylPREDNISolone SOD SUC 40 MG/1 ML VIAL IV SCH ×3 (05:55→20:46)
[2017-12-06 06:08] LABS: INR 5.2; PT Patient Result 51.9 SECS
[2017-12-06 06:55] LABS: Giant Platelets Few; Hypochromasia Slight; Lymphocytes 3 % (20-55); Platelet Estimate Normal; Segmented Neutrophils 93 % (50-85); Total Cells Counted 100
[2017-12-06] MEDS: POTASSIUM CHLORIDE 20 MEQ TABLET PO PRN ×3 (07:10→13:50)
[2017-12-06] MEDS: FUROSEMIDE 40 MG/4 ML VIAL IV SCH (09:44)
[2017-12-06] MEDS: METHOCARBAMOL 750 MG TABLET PO SCH ×2 (09:45→20:49)
[2017-12-06] MEDS: CHOLECALCIFEROL 1,000 UNIT TABLET PO SCH (09:45)
[2017-12-06] MEDS: VALSARTAN/HCTZ 160-12.5 MG TABLET PO SCH (09:45)
[2017-12-06] MEDS: POTASSIUM CHLORIDE 10 MEQ TABLET PO SCH (09:45)
[2017-12-06] MEDS: ASPIRIN EC 325 MG TABLET PO SCH (09:45)
[2017-12-06] MEDS: PANTOPRAZOLE 40 MG TABLET PO SCH (09:46)
[2017-12-06] MEDS: DOCUSATE SODIUM 100 MG CAPSULE PO SCH ×2 (09:46→20:49)
[2017-12-06] MEDS: METOPROLOL TARTRATE 25 MG TABLET PO SCH ×2 (09:46→20:49)
[2017-12-06] MEDS: NYSTATIN 500,000 UNIT/5 ML UDCUP SWISH/SWAL SCH ×4 (09:47→20:48)
[2017-12-06] MEDS: LEVOFLOXACIN INJ 500 MG in PREMIX 1 EACH IV SCH (09:48)
[2017-12-07] MEDS: ALBUTEROL/IPRATROPIUM 3 ML NEB RESP TX SCH ×4 (00:20→19:09)
[2017-12-07] MEDS: methylPREDNISolone SOD SUC 40 MG/1 ML VIAL IV SCH ×3 (05:09→20:45)
[2017-12-07 05:39] LABS: Basophils % 0.2 % (0.0-0.8); Hematocrit 42.1 VOL% (42.0-52.0); Hemoglobin 14.2 GM/DL (14.0-18.0); Immature Granulocytes % 1.4 %; Immature Granulocytes Absolute 0.25 #; Lymphocytes # 0.5 10*3/uL (1.4-4.0); Lymphocytes % 2.8 % (21.2-54.2); Mean Corpuscular HGB Conc 33.7 GM/DL (32-36); Mean Corpuscular Hemoglobin 32 PG (27-34); Mean Corpuscular Volume 94.4 FL (87-102); Mean Platelet Volume 11.1 FL (9.6-12.0); Monocytes # 0.8 10*3/uL (0.11-0.8); Monocytes % 4.5 % (1.7-12.7); Neutrophils # 16.3 10*3/uL (1.4-7.4); Neutrophils % 91.1 % (38.7-73.9); Platelet Count 331 T/CUMM (130-400); Red Blood Count 4.46 MC/CUMM (3.8-5.5); Red Cell Distribution Width 14.5 % (9.3-17.3); White Blood Count 17.9 T/CUMM (4-12)
[2017-12-07 05:54] LABS: INR 4.4
[2017-12-07 06:02] LABS: Calcium 8.5 MG/DL (8.5-10.1); Osmolality,Calculated 295.3 MOS/KG (273-304); Potassium 3.6 MMOL/L (3.5-5.1)
[2017-12-07 06:11] LABS: PT Patient Result 44.3 SECS
[2017-12-07 07:24] LABS: Anisocytosis Slight; Band Neutrophils 1 % (0-10); Lymphocytes 1 % (20-55); Segmented Neutrophils 95 % (50-85); Total Cells Counted 100
[2017-12-07 07:25] LABS: Macrocytosis Slight
[2017-12-07] MEDS: FUROSEMIDE 40 MG/4 ML VIAL IV SCH (07:55)
[2017-12-07] MEDS: CHOLECALCIFEROL 1,000 UNIT TABLET PO SCH (09:28)
[2017-12-07] MEDS: POTASSIUM CHLORIDE 20 MEQ TABLET PO PRN ×2 (09:29→17:20)
[2017-12-07] MEDS: DOCUSATE SODIUM 100 MG CAPSULE PO SCH ×2 (09:30→20:44)
[2017-12-07] MEDS: POTASSIUM CHLORIDE 10 MEQ TABLET PO SCH (09:30)
[2017-12-07] MEDS: VALSARTAN/HCTZ 160-12.5 MG TABLET PO SCH (09:30)
[2017-12-07] MEDS: METOPROLOL TARTRATE 25 MG TABLET PO SCH ×2 (09:30→20:44)
[2017-12-07] MEDS: PANTOPRAZOLE 40 MG TABLET PO SCH (09:30)
[2017-12-07] MEDS: METHOCARBAMOL 750 MG TABLET PO SCH ×2 (09:30→20:44)
[2017-12-07] MEDS: NYSTATIN 500,000 UNIT/5 ML UDCUP SWISH/SWAL SCH ×4 (09:31→20:44)
[2017-12-07] MEDS: ASPIRIN EC 325 MG TABLET PO SCH (09:31)
[2017-12-07] MEDS: LEVOFLOXACIN INJ 500 MG in PREMIX 1 EACH IV SCH (09:31)
[2017-12-07] MEDS: DORNASE ALFA 2.5 MG/2.5 ML VIAL RESP TX SCH ×2 (13:38→19:09)
[2017-12-07] MEDS: POLYETHYLENE GLYCOL POWDER 17 GM PACK PO PRN (19:27)
[2017-12-07] MEDS ORDERED: POTASSIUM CHLORIDE 10 MEQ TABLET PO SCH (21:12)
[2017-12-08] MEDS: ALBUTEROL/IPRATROPIUM 3 ML NEB RESP TX SCH ×4 (01:02→19:29)
[2017-12-08 05:29] LABS: Basophils % 0.2 % (0.0-0.8); Hematocrit 42.3 VOL% (42.0-52.0); Immature Granulocytes % 1.8 %; Lymphocytes # 0.5 10*3/uL (1.4-4.0); Lymphocytes % 2.4 % (21.2-54.2); Mean Corpuscular HGB Conc 33.1 GM/DL (32-36); Mean Corpuscular Hemoglobin 32 PG (27-34); Mean Corpuscular Volume 96.1 FL (87-102); Mean Platelet Volume 11.1 FL (9.6-12.0); Monocytes # 0.9 10*3/uL (0.11-0.8); Monocytes % 4.2 % (1.7-12.7); Neutrophils # 19.8 10*3/uL (1.4-7.4); Neutrophils % 91.4 % (38.7-73.9); Platelet Count 318 T/CUMM (130-400); Red Cell Distribution Width 14.4 % (9.3-17.3); White Blood Count 21.7 T/CUMM (4-12)
[2017-12-08] MEDS: methylPREDNISolone SOD SUC 40 MG/1 ML VIAL IV SCH (05:48)
[2017-12-08 05:53] LABS: Lymphocytes 3 % (20-55); Nucleated Red Blood Cells 1 (0-5); Platelet Estimate Adequate; Segmented Neutrophils 94 % (50-85); Total Cells Counted 100
[2017-12-08 05:54] LABS: Hypochromasia Slight; Macrocytosis Slight
[2017-12-08 06:33] LABS: Calcium 8.5 MG/DL (8.5-10.1); Osmolality,Calculated 293.4 MOS/KG (273-304); Potassium 3.5 MMOL/L (3.5-5.1)
[2017-12-08] MEDS: DORNASE ALFA 2.5 MG/2.5 ML VIAL RESP TX SCH (07:10)
[2017-12-08] MEDS: FUROSEMIDE 40 MG/4 ML VIAL IV SCH (09:38)
[2017-12-08] MEDS: VALSARTAN/HCTZ 160-12.5 MG TABLET PO SCH (09:40)
[2017-12-08] MEDS: NYSTATIN 500,000 UNIT/5 ML UDCUP SWISH/SWAL SCH ×4 (09:40→20:40)
[2017-12-08] MEDS: CHOLECALCIFEROL 1,000 UNIT TABLET PO SCH (09:40)
[2017-12-08] MEDS: DOCUSATE SODIUM 100 MG CAPSULE PO SCH ×2 (09:40→20:40)
[2017-12-08] MEDS: ASPIRIN EC 325 MG TABLET PO SCH (09:40)
[2017-12-08] MEDS: PANTOPRAZOLE 40 MG TABLET PO SCH (09:40)
[2017-12-08] MEDS: LEVOFLOXACIN INJ 500 MG in PREMIX 1 EACH IV SCH (10:21)
[2017-12-08] MEDS: METOPROLOL TARTRATE 25 MG TABLET PO SCH ×2 (10:28→20:48)
[2017-12-08] MEDS: LEVOFLOXACIN 500 MG TABLET PO SCH (10:28)
[2017-12-08] MEDS: POLYETHYLENE GLYCOL POWDER 17 GM PACK PO PRN (20:40)
[2017-12-08] MEDS ORDERED: methylPREDNISolone SOD SUC 40 MG/1 ML VIAL IV SCH (21:00)
[2017-12-09] MEDS: ALBUTEROL/IPRATROPIUM 3 ML NEB RESP TX SCH ×2 (00:10→06:50)
[2017-12-09] MEDS: POTASSIUM CHLORIDE 20 MEQ TABLET PO SCH ×2 (01:33→08:59)
[2017-12-09 05:53] LABS: Basophils # 0.1 10*3/uL (0.0-0.2); Basophils % 0.3 % (0.0-0.8); Hematocrit 40.9 VOL% (42.0-52.0); Hemoglobin 13.7 GM/DL (14.0-18.0); Immature Granulocytes % 2.3 %; Immature Granulocytes Absolute 0.51 #; Lymphocytes # 0.5 10*3/uL (1.4-4.0); Lymphocytes % 2.4 % (21.2-54.2); Mean Corpuscular HGB Conc 33.5 GM/DL (32-36); Mean Corpuscular Hemoglobin 32 PG (27-34); Mean Corpuscular Volume 96.5 FL (87-102); Mean Platelet Volume 11.3 FL (9.6-12.0); Monocytes # 1.1 10*3/uL (0.11-0.8); Monocytes % 4.8 % (1.7-12.7); Neutrophils % 90.2 % (38.7-73.9); Platelet Count 313 T/CUMM (130-400); Red Blood Count 4.24 MC/CUMM (3.8-5.5); Red Cell Distribution Width 14.5 % (9.3-17.3); White Blood Count 22.2 T/CUMM (4-12)
[2017-12-09 06:03] LABS: INR 2.1
[2017-12-09 06:10] LABS: PT Patient Result 21.4 SECS
[2017-12-09 06:31] LABS: Calcium 8.1 MG/DL (8.5-10.1); Osmolality,Calculated 295.3 MOS/KG (273-304); Potassium 3.9 MMOL/L (3.5-5.1)
[2017-12-09 07:31] LABS: Hypochromasia 1+; Lymphocytes 6 % (20-55); Macrocytosis Slight; Platelet Estimate Adequate; Segmented Neutrophils 90 % (50-85); Total Cells Counted 100
[2017-12-09 08:32] VITALS: BP 142/77
[2017-12-09] MEDS: PANTOPRAZOLE 40 MG TABLET PO SCH (08:55)
[2017-12-09] MEDS: LEVOFLOXACIN 500 MG TABLET PO SCH (08:56)
[2017-12-09] MEDS: ASPIRIN EC 325 MG TABLET PO SCH (08:56)
[2017-12-09] MEDS: VALSARTAN/HCTZ 160-12.5 MG TABLET PO SCH (08:57)
[2017-12-09] MEDS: CHOLECALCIFEROL 1,000 UNIT TABLET PO SCH (08:58)
[2017-12-09] MEDS: DOCUSATE SODIUM 100 MG CAPSULE PO SCH (08:59)
[2017-12-09] MEDS: METOPROLOL TARTRATE 25 MG TABLET PO SCH (08:59)
[2017-12-09] MEDS ORDERED: predniSONE 20 MG TABLET PO SCH (09:00)
[2017-12-09] MEDS ORDERED: FUROSEMIDE 40 MG TABLET PO SCH (09:00)
[2017-12-09] MEDS: NYSTATIN 500,000 UNIT/5 ML UDCUP SWISH/SWAL SCH (09:00)
[2017-12-09] MEDS ORDERED: LINACLOTIDE 145 MCG CAPSULE PO SCH (09:30)
== END 2017-12-09 10:44 | DRG 196 ==
LOC: N.ED 10:50 → N.EDINP 12:13 → N.ICU 13:13 → N.2E 12-04 16:10
PROVIDERS: ADMIT Internal Medicine; ATTEND Internal Medicine

== ENCOUNTER 2017-12-15 19:21 | Inpatient (IN) ==
[2017-12-15] MEDS ORDERED: LACTATED RINGERS 1,000 ML IV ONE (19:54)
[2017-12-15] MEDS ORDERED: ONDANSETRON 4 MG/2 ML VIAL IV STA (19:54)
[2017-12-15 20:21] LABS: Basophils # 0.1 10*3/uL (0.0-0.2); Basophils % 0.3 % (0.0-0.8); Eosinophils # 0.1 10*3/uL (0.0-0.87); Eosinophils % 0.4 % (0.00-10.9); Immature Granulocytes % 3.5 %; Immature Granulocytes Absolute 0.89 #; Lymphocytes # 1.2 10*3/uL (1.4-4.0); Lymphocytes % 4.6 % (21.2-54.2); Mean Corpuscular HGB Conc 33.3 GM/DL (32-36); Mean Corpuscular Hemoglobin 32 PG (27-34); Mean Platelet Volume 11.5 FL (9.6-12.0); Monocytes # 2.5 10*3/uL (0.11-0.8); Monocytes % 9.8 % (1.7-12.7); Neutrophils % 81.4 % (38.7-73.9); Platelet Count 203 T/CUMM (130-400); Red Blood Count 4.33 MC/CUMM (3.8-5.5); Red Cell Distribution Width 14.4 % (9.3-17.3); White Blood Count 25.8 T/CUMM (4-12)
[2017-12-15 20:30] LABS: Apearance,Urine CLEAR (Clear); Bilirubin,Urine Negative (Negative); Blood, Urine Negative (Negative); Glucose,Urine (UA) Negative (Negative); INR 1.1; Ketones,Urine Negative (Negative); Mucus,Urine Occasional /LPF (Occasional); Nitrite,Urine Negative (Negative); PT Patient Result 11.7 SECS; Partial Thromboplastin Time 28.5 SECS (0-40); Protein,Urine Negative; RBC,Urine 1 /HPF (0-4); Squamous Epithelial Cell,Urine Occasional /HPF (0-10); Urine Color Yellow (Yellow); Urine Specific Gravity 1.012 (1.001-1.035); Urine Urobilinogen < 2.0 EU/DL (0.2-1.0); WBC,Urine 2 /HPF (0-6)
[2017-12-15 20:43] LABS: Albumin 2.1 G/DL (3.4-5.0); Band Neutrophils 6 % (0-10); Bilirubin,Total 0.7 MG/DL (0.2-1.0); Calcium 7.5 MG/DL (8.5-10.1); Lymphocytes 6 % (20-55); Osmolality,Calculated 280.4 MOS/KG (273-304); Potassium 4.2 MMOL/L (3.5-5.1); Reactive Lymphocytes Few; Segmented Neutrophils 81 % (50-85); Total Cells Counted 100; Total Protein 5.3 G/DL (6.4-8.3)
[2017-12-15 20:44] LABS: Macrocytosis Slight; Platelet Estimate Adequate
[2017-12-15] MEDS ORDERED: CEFEPIME 2,000 MG in SODIUM CHLORIDE 0.9% 100 ML IV STA (21:07)
[2017-12-15] MEDS ORDERED: VANCOMYCIN INJ 1,000 MG in SODIUM CHLORIDE 0.9% 250 ML IV STA (21:07)
[2017-12-15] MEDS ORDERED: ACETAMINOPHEN 500 MG TABLET PO ONE (22:19)
[2017-12-15] MEDS ORDERED: ACETAMINOPHEN 500 MG TABLET PO PRN (23:03)
[2017-12-16] MEDS ORDERED: ALBUTEROL/IPRATROPIUM 3 ML NEB RESP TX PRN (08:50)
[2017-12-16] MEDS ORDERED: POLYETHYLENE GLYCOL POWDER 17 GM PACK PO PRN (08:50)
[2017-12-16] MEDS: methylPREDNISolone SOD SUC 40 MG/1 ML VIAL IV SCH ×2 (09:17→21:09)
[2017-12-16] MEDS: CEFEPIME 1,000 MG in SYRINGE 1 EACH IV SCH ×2 (09:17→21:12)
[2017-12-16] MEDS: CHOLECALCIFEROL 1,000 UNIT TABLET PO SCH (09:34)
[2017-12-16] MEDS: PANTOPRAZOLE 40 MG TABLET PO SCH (09:34)
[2017-12-16] MEDS: VALSARTAN/HCTZ 160-12.5 MG TABLET PO SCH (09:34)
[2017-12-16] MEDS: POTASSIUM CHLORIDE 10 MEQ TABLET PO SCH ×2 (09:34→21:05)
[2017-12-16] MEDS: METOPROLOL TARTRATE 25 MG TABLET PO SCH ×2 (09:34→21:05)
[2017-12-16] MEDS: DOCUSATE SODIUM 100 MG CAPSULE PO SCH ×2 (09:35→21:05)
[2017-12-16] MEDS: ASPIRIN EC 325 MG TABLET PO SCH (09:35)
[2017-12-16] MEDS: NYSTATIN 500,000 UNIT/5 ML UDCUP SWISH/SWAL SCH ×4 (09:35→21:06)
[2017-12-16] MEDS ORDERED: WARFARIN 1 MG TABLET PO SCH (18:00)
[2017-12-17 06:40] LABS: Basophils # 0.1 10*3/uL (0.0-0.2); Basophils % 0.2 % (0.0-0.8); Hematocrit 40.1 VOL% (42.0-52.0); Hemoglobin 13.4 GM/DL (14.0-18.0); Immature Granulocytes Absolute 0.54 #; Lymphocytes # 0.8 10*3/uL (1.4-4.0); Mean Corpuscular HGB Conc 33.4 GM/DL (32-36); Mean Corpuscular Hemoglobin 32 PG (27-34); Mean Corpuscular Volume 95.2 FL (87-102); Mean Platelet Volume 11.9 FL (9.6-12.0); Monocytes % 3.8 % (1.7-12.7); Neutrophils # 24.3 10*3/uL (1.4-7.4); Platelet Count 204 T/CUMM (130-400); Red Blood Count 4.21 MC/CUMM (3.8-5.5); Red Cell Distribution Width 14.6 % (9.3-17.3); White Blood Count 26.7 T/CUMM (4-12)
[2017-12-17 06:46] LABS: INR 1.1; PT Patient Result 11.2 SECS
[2017-12-17 07:04] LABS: Calcium 7.9 MG/DL (8.5-10.1); Osmolality,Calculated 280.5 MOS/KG (273-304); Potassium 4.3 MMOL/L (3.5-5.1)
[2017-12-17 07:06] LABS: Hypochromasia 1+; Lymphocytes 2 % (20-55); Segmented Neutrophils 96 % (50-85); Total Cells Counted 100
[2017-12-17 07:07] LABS: Macrocytosis Slight; Platelet Estimate Normal
[2017-12-17] MEDS: METOPROLOL TARTRATE 25 MG TABLET PO SCH ×2 (09:39→21:46)
[2017-12-17] MEDS: VALSARTAN/HCTZ 160-12.5 MG TABLET PO SCH (09:39)
[2017-12-17] MEDS: POTASSIUM CHLORIDE 10 MEQ TABLET PO SCH ×2 (09:39→21:46)
[2017-12-17] MEDS: CHOLECALCIFEROL 1,000 UNIT TABLET PO SCH (09:39)
[2017-12-17] MEDS: ASPIRIN EC 325 MG TABLET PO SCH (09:39)
[2017-12-17] MEDS: DOCUSATE SODIUM 100 MG CAPSULE PO SCH ×2 (09:39→21:46)
[2017-12-17] MEDS: PANTOPRAZOLE 40 MG TABLET PO SCH (09:39)
[2017-12-17] MEDS: NYSTATIN 500,000 UNIT/5 ML UDCUP SWISH/SWAL SCH ×4 (09:40→21:45)
[2017-12-17] MEDS: methylPREDNISolone SOD SUC 40 MG/1 ML VIAL IV SCH ×2 (09:40→21:45)
[2017-12-17] MEDS: CEFEPIME 1,000 MG in SYRINGE 1 EACH IV SCH ×2 (09:47→21:45)
[2017-12-17] MEDS: FINASTERIDE 5 MG TABLET PO SCH (17:42)
[2017-12-17] MEDS: TAMSULOSIN 0.4 MG CAPSULE PO SCH (17:42)
[2017-12-17] MEDS ORDERED: WARFARIN 1 MG TABLET PO SCH (18:00)
[2017-12-18 05:28] LABS: Basophils % 0.1 % (0.0-0.8); Hematocrit 35.8 VOL% (42.0-52.0); Hemoglobin 12.2 GM/DL (14.0-18.0); Immature Granulocytes % 2.3 %; Immature Granulocytes Absolute 0.72 #; Lymphocytes # 0.6 10*3/uL (1.4-4.0); Mean Corpuscular HGB Conc 34.1 GM/DL (32-36); Mean Corpuscular Hemoglobin 32 PG (27-34); Mean Platelet Volume 11.9 FL (9.6-12.0); Monocytes # 1.3 10*3/uL (0.11-0.8); Monocytes % 4.2 % (1.7-12.7); Neutrophils # 28.6 10*3/uL (1.4-7.4); Neutrophils % 91.4 % (38.7-73.9); Platelet Count 170 T/CUMM (130-400); Red Blood Count 3.77 MC/CUMM (3.8-5.5); Red Cell Distribution Width 14.9 % (9.3-17.3); White Blood Count 31.3 T/CUMM (4-12)
[2017-12-18 05:46] LABS: Calcium 7.6 MG/DL (8.5-10.1); Osmolality,Calculated 285.4 MOS/KG (273-304); Potassium 4.5 MMOL/L (3.5-5.1)
[2017-12-18 05:56] LABS: Hypochromasia 1+; Lymphocytes 2 % (20-55); Ovalocytes Slight; Segmented Neutrophils 97 % (50-85); Total Cells Counted 100
[2017-12-18 05:57] LABS: Macrocytosis Slight; Platelet Estimate Adequate
[2017-12-18] MEDS ORDERED: predniSONE 20 MG TABLET PO SCH (09:00)
[2017-12-18] MEDS ORDERED: CEFDINIR 300 MG CAPSULE PO SCH (09:00)
[2017-12-18] MEDS: CHOLECALCIFEROL 1,000 UNIT TABLET PO SCH (09:06)
[2017-12-18] MEDS: TAMSULOSIN 0.4 MG CAPSULE PO SCH (09:07)
[2017-12-18] MEDS: ASPIRIN EC 325 MG TABLET PO SCH (09:07)
[2017-12-18] MEDS: METOPROLOL TARTRATE 25 MG TABLET PO SCH (09:07)
[2017-12-18] MEDS: POTASSIUM CHLORIDE 10 MEQ TABLET PO SCH (09:07)
[2017-12-18] MEDS: VALSARTAN/HCTZ 160-12.5 MG TABLET PO SCH (09:07)
[2017-12-18] MEDS: NYSTATIN 500,000 UNIT/5 ML UDCUP SWISH/SWAL SCH ×2 (09:07→14:03)
[2017-12-18] MEDS: DOCUSATE SODIUM 100 MG CAPSULE PO SCH (09:07)
[2017-12-18] MEDS: PANTOPRAZOLE 40 MG TABLET PO SCH (09:08)
[2017-12-18] MEDS: FINASTERIDE 5 MG TABLET PO SCH (09:08)
[2017-12-18 12:42] VITALS: BP 125/60
== END 2017-12-18 15:16 | DRG 196 ==
LOC: EDUNIT# → N.ED 19:21 → N.EDINP 21:41 → N.TELEN 21:57
PROVIDERS: ADMIT Internal Medicine; ATTEND Internal Medicine

== ENCOUNTER 2017-12-25 11:26 | Inpatient (IN) ==
[2017-12-25] MEDS ORDERED: ONDANSETRON 4 MG/2 ML VIAL IV PRN (11:48)
[2017-12-25] MEDS ORDERED: ALBUTEROL/IPRATROPIUM 3 ML NEB RESP TX PRN (11:52)
[2017-12-25] MEDS: methylPREDNISolone SOD SUC 40 MG/1 ML VIAL IV SCH ×2 (17:16→21:01)
[2017-12-25] MEDS: ALBUTEROL/IPRATROPIUM 3 ML NEB RESP TX SCH ×2 (17:16→20:24)
[2017-12-25] MEDS: LEVOFLOXACIN INJ 500 MG in PREMIX 1 EACH IV SCH (17:23)
[2017-12-25] MEDS: ENOXAPARIN 40 MG/0.4 ML SYRINGE SUBCUT SCH (17:25)
[2017-12-25] MEDS: DOCUSATE SODIUM 100 MG CAPSULE PO SCH (20:56)
[2017-12-26] MEDS: ALBUTEROL/IPRATROPIUM 3 ML NEB RESP TX SCH ×7 (00:15→22:55)
[2017-12-26] MEDS: ACETAMINOPHEN 325 MG TABLET PO PRN ×2 (00:35→21:04)
[2017-12-26] MEDS: methylPREDNISolone SOD SUC 40 MG/1 ML VIAL IV SCH ×4 (03:06→21:02)
[2017-12-26 05:59] LABS: Basophils % 0.1 % (0.0-0.8); Hematocrit 39.4 VOL% (42.0-52.0); Hemoglobin 13.2 GM/DL (14.0-18.0); Immature Granulocytes % 1.4 %; Immature Granulocytes Absolute 0.24 #; Lymphocytes # 0.5 10*3/uL (1.4-4.0); Lymphocytes % 2.7 % (21.2-54.2); Mean Corpuscular HGB Conc 33.5 GM/DL (32-36); Mean Corpuscular Hemoglobin 32 PG (27-34); Mean Corpuscular Volume 95.9 FL (87-102); Mean Platelet Volume 13.6 FL (9.6-12.0); Monocytes # 0.7 10*3/uL (0.11-0.8); Monocytes % 3.8 % (1.7-12.7); Neutrophils # 16.1 10*3/uL (1.4-7.4); Platelet Count 105 T/CUMM (130-400); Red Blood Count 4.11 MC/CUMM (3.8-5.5); Red Cell Distribution Width 14.8 % (9.3-17.3); White Blood Count 17.5 T/CUMM (4-12)
[2017-12-26 06:26] LABS: Hypochromasia 1+; Lymphocytes 2 % (20-55); Segmented Neutrophils 97 % (50-85); Total Cells Counted 100
[2017-12-26 06:27] LABS: Microcytosis Slight; Platelet Estimate Decreased; Polychromasia Slight
[2017-12-26 06:35] LABS: Calcium 8.3 MG/DL (8.5-10.1); Osmolality,Calculated 275.4 MOS/KG (273-304); Potassium 3.8 MMOL/L (3.5-5.1)
[2017-12-26 08:55] LABS: INR 1.3; PT Patient Result 13.9 SECS
[2017-12-26] MEDS ORDERED: NON-FORMULARY MEDICATION (Esomeprazole Magnesium [Nexium] 40 MG) PO SCH (09:00)
[2017-12-26] MEDS: CHOLECALCIFEROL 1,000 UNIT TABLET PO SCH (09:40)
[2017-12-26] MEDS: NYSTATIN 500,000 UNIT/5 ML UDCUP SWISH/SWAL SCH ×4 (09:40→21:12)
[2017-12-26] MEDS: DOCUSATE SODIUM 100 MG CAPSULE PO SCH ×2 (09:40→21:03)
[2017-12-26] MEDS: PANTOPRAZOLE 40 MG TABLET PO SCH (09:40)
[2017-12-26] MEDS: ASPIRIN EC 325 MG TABLET PO SCH (09:40)
[2017-12-26] MEDS: METOPROLOL TARTRATE 25 MG TABLET PO SCH ×2 (09:41→21:04)
[2017-12-26] MEDS: FUROSEMIDE 40 MG TABLET PO SCH (09:41)
[2017-12-26] MEDS: POTASSIUM CHLORIDE 20 MEQ TABLET PO SCH ×2 (09:41→21:03)
[2017-12-26] MEDS: VALSARTAN/HCTZ 160-12.5 MG TABLET PO SCH (09:41)
[2017-12-26] MEDS: FINASTERIDE 5 MG TABLET PO SCH (09:41)
[2017-12-26] MEDS: TAMSULOSIN 0.4 MG CAPSULE PO SCH (09:41)
[2017-12-26] MEDS ORDERED: FUROSEMIDE 40 MG/4 ML VIAL IV ONE (11:50)
[2017-12-26] MEDS: ENOXAPARIN 40 MG/0.4 ML SYRINGE SUBCUT SCH (16:49)
[2017-12-26] MEDS: LEVOFLOXACIN INJ 500 MG in PREMIX 1 EACH IV SCH (16:50)
[2017-12-26] MEDS: WARFARIN 2.5 MG TABLET PO SCH (17:57)
[2017-12-26] MEDS: ZINC OXIDE PASTE 113 GM TUBE TOP SCH ×2 (17:57→21:13)
[2017-12-27] MEDS: ALBUTEROL/IPRATROPIUM 3 ML NEB RESP TX SCH ×6 (02:43→23:57)
[2017-12-27] MEDS: methylPREDNISolone SOD SUC 40 MG/1 ML VIAL IV SCH ×4 (04:44→21:48)
[2017-12-27 06:28] LABS: Basophils % 0.2 % (0.0-0.8); Hemoglobin 13.3 GM/DL (14.0-18.0); Immature Granulocytes % 1.9 %; Immature Granulocytes Absolute 0.43 #; Lymphocytes # 0.6 10*3/uL (1.4-4.0); Lymphocytes % 2.8 % (21.2-54.2); Mean Corpuscular HGB Conc 33.3 GM/DL (32-36); Mean Corpuscular Hemoglobin 32 PG (27-34); Mean Platelet Volume 13.2 FL (9.6-12.0); Monocytes # 1.2 10*3/uL (0.11-0.8); Monocytes % 5.4 % (1.7-12.7); Neutrophils # 19.8 10*3/uL (1.4-7.4); Neutrophils % 89.7 % (38.7-73.9); Platelet Count 155 T/CUMM (130-400); Red Blood Count 4.21 MC/CUMM (3.8-5.5); White Blood Count 22.1 T/CUMM (4-12)
[2017-12-27 06:32] LABS: INR 1.5
[2017-12-27 07:02] LABS: Anisocytosis 1+; Band Neutrophils 2 % (0-10); Calcium 8.1 MG/DL (8.5-10.1); Lymphocytes 3 % (20-55); Osmolality,Calculated 286.8 MOS/KG (273-304); Platelet Estimate Adequate; Potassium 3.6 MMOL/L (3.5-5.1); Segmented Neutrophils 93 % (50-85); Total Cells Counted 100
[2017-12-27 07:03] LABS: Polychromasia Slight
[2017-12-27] MEDS: NYSTATIN 500,000 UNIT/5 ML UDCUP SWISH/SWAL SCH ×4 (09:50→21:47)
[2017-12-27] MEDS: FINASTERIDE 5 MG TABLET PO SCH (09:50)
[2017-12-27] MEDS: FUROSEMIDE 40 MG TABLET PO SCH (09:50)
[2017-12-27] MEDS: ASPIRIN EC 325 MG TABLET PO SCH (09:51)
[2017-12-27] MEDS: CHOLECALCIFEROL 1,000 UNIT TABLET PO SCH (09:51)
[2017-12-27] MEDS: DOCUSATE SODIUM 100 MG CAPSULE PO SCH ×2 (09:51→21:47)
[2017-12-27] MEDS: POTASSIUM CHLORIDE 20 MEQ TABLET PO SCH ×2 (09:51→21:47)
[2017-12-27] MEDS: TAMSULOSIN 0.4 MG CAPSULE PO SCH (09:51)
[2017-12-27] MEDS: VALSARTAN/HCTZ 160-12.5 MG TABLET PO SCH (09:51)
[2017-12-27] MEDS: METOPROLOL TARTRATE 25 MG TABLET PO SCH ×2 (09:51→21:02)
[2017-12-27] MEDS: ZINC OXIDE PASTE 113 GM TUBE TOP SCH ×2 (09:52→21:47)
[2017-12-27] MEDS: PANTOPRAZOLE 40 MG TABLET PO SCH (10:06)
[2017-12-27] MEDS: LEVOFLOXACIN INJ 500 MG in PREMIX 1 EACH IV SCH (15:33)
[2017-12-27] MEDS: ENOXAPARIN 40 MG/0.4 ML SYRINGE SUBCUT SCH (15:56)
[2017-12-27] MEDS: WARFARIN 2.5 MG TABLET PO SCH (17:55)
[2017-12-27] MEDS: POLYETHYLENE GLYCOL POWDER 17 GM PACK PO PRN (19:01)
[2017-12-27] MEDS: ACETAMINOPHEN 325 MG TABLET PO PRN (19:01)
[2017-12-28] MEDS: ALBUTEROL/IPRATROPIUM 3 ML NEB RESP TX SCH ×5 (04:05→20:18)
[2017-12-28] MEDS: methylPREDNISolone SOD SUC 40 MG/1 ML VIAL IV SCH ×4 (05:15→21:18)
[2017-12-28 06:05] LABS: PT Patient Result 20.9 SECS
[2017-12-28] MEDS: TAMSULOSIN 0.4 MG CAPSULE PO SCH (09:06)
[2017-12-28] MEDS: CHOLECALCIFEROL 1,000 UNIT TABLET PO SCH (09:06)
[2017-12-28] MEDS: POTASSIUM CHLORIDE 20 MEQ TABLET PO SCH ×2 (09:06→21:18)
[2017-12-28] MEDS: NYSTATIN 500,000 UNIT/5 ML UDCUP SWISH/SWAL SCH ×4 (09:06→21:18)
[2017-12-28] MEDS: METOPROLOL TARTRATE 25 MG TABLET PO SCH ×2 (09:07→21:18)
[2017-12-28] MEDS: FUROSEMIDE 40 MG TABLET PO SCH (09:07)
[2017-12-28] MEDS: ZINC OXIDE PASTE 113 GM TUBE TOP SCH ×2 (09:07→21:19)
[2017-12-28] MEDS: FINASTERIDE 5 MG TABLET PO SCH (09:07)
[2017-12-28] MEDS: VALSARTAN/HCTZ 160-12.5 MG TABLET PO SCH (09:07)
[2017-12-28] MEDS: PANTOPRAZOLE 40 MG TABLET PO SCH (09:07)
[2017-12-28] MEDS: DOCUSATE SODIUM 100 MG CAPSULE PO SCH ×2 (09:07→21:18)
[2017-12-28] MEDS: ASPIRIN EC 325 MG TABLET PO SCH (09:07)
[2017-12-28] MEDS: ENOXAPARIN 40 MG/0.4 ML SYRINGE SUBCUT SCH (16:17)
[2017-12-28] MEDS: LEVOFLOXACIN INJ 500 MG in PREMIX 1 EACH IV SCH (16:17)
[2017-12-28] MEDS: ACETAMINOPHEN 325 MG TABLET PO PRN ×2 (16:30→21:17)
[2017-12-28] MEDS: WARFARIN 2.5 MG TABLET PO SCH (17:51)
[2017-12-29 04:08] LABS: PT Patient Result 30.2 SECS
[2017-12-29] MEDS: ALBUTEROL/IPRATROPIUM 3 ML NEB RESP TX SCH ×7 (04:52→23:14)
[2017-12-29] MEDS: methylPREDNISolone SOD SUC 40 MG/1 ML VIAL IV SCH ×3 (05:12→21:36)
[2017-12-29] MEDS: NYSTATIN 500,000 UNIT/5 ML UDCUP SWISH/SWAL SCH ×4 (08:53→21:37)
[2017-12-29] MEDS: PANTOPRAZOLE 40 MG TABLET PO SCH (08:54)
[2017-12-29] MEDS: VALSARTAN/HCTZ 160-12.5 MG TABLET PO SCH (08:54)
[2017-12-29] MEDS: FINASTERIDE 5 MG TABLET PO SCH (08:54)
[2017-12-29] MEDS: DOCUSATE SODIUM 100 MG CAPSULE PO SCH ×2 (08:54→21:37)
[2017-12-29] MEDS: TAMSULOSIN 0.4 MG CAPSULE PO SCH (08:54)
[2017-12-29] MEDS: METOPROLOL TARTRATE 25 MG TABLET PO SCH ×2 (08:54→21:38)
[2017-12-29] MEDS: ASPIRIN EC 325 MG TABLET PO SCH (08:54)
[2017-12-29] MEDS: ZINC OXIDE PASTE 113 GM TUBE TOP SCH ×2 (08:54→21:38)
[2017-12-29] MEDS: POTASSIUM CHLORIDE 20 MEQ TABLET PO SCH ×2 (08:54→21:37)
[2017-12-29] MEDS: FUROSEMIDE 40 MG TABLET PO SCH (08:54)
[2017-12-29] MEDS: CHOLECALCIFEROL 1,000 UNIT TABLET PO SCH (08:54)
[2017-12-29] MEDS: LEVOFLOXACIN INJ 500 MG in PREMIX 1 EACH IV SCH (17:07)
[2017-12-29] MEDS: POLYETHYLENE GLYCOL POWDER 17 GM PACK PO PRN (21:36)
[2017-12-29] MEDS: ACETAMINOPHEN 325 MG TABLET PO PRN (21:37)
[2017-12-30] MEDS: ALBUTEROL/IPRATROPIUM 3 ML NEB RESP TX SCH ×5 (03:15→20:11)
[2017-12-30 04:41] LABS: Basophils # 0.1 10*3/uL (0.0-0.2); Basophils % 0.2 % (0.0-0.8); Hematocrit 40.1 VOL% (42.0-52.0); Hemoglobin 13.4 GM/DL (14.0-18.0); Immature Granulocytes % 2.3 %; Immature Granulocytes Absolute 0.48 #; Lymphocytes # 0.4 10*3/uL (1.4-4.0); Lymphocytes % 1.7 % (21.2-54.2); Mean Corpuscular HGB Conc 33.4 GM/DL (32-36); Mean Corpuscular Hemoglobin 32 PG (27-34); Mean Corpuscular Volume 96.6 FL (87-102); Mean Platelet Volume 12.6 FL (9.6-12.0); Monocytes % 4.9 % (1.7-12.7); Neutrophils # 18.8 10*3/uL (1.4-7.4); Neutrophils % 90.9 % (38.7-73.9); Platelet Count 172 T/CUMM (130-400); Red Blood Count 4.15 MC/CUMM (3.8-5.5); Red Cell Distribution Width 14.9 % (9.3-17.3); White Blood Count 20.7 T/CUMM (4-12)
[2017-12-30] MEDS: methylPREDNISolone SOD SUC 40 MG/1 ML VIAL IV SCH ×3 (04:56→22:01)
[2017-12-30 05:00] LABS: Calcium 8.3 MG/DL (8.5-10.1); Osmolality,Calculated 292.5 MOS/KG (273-304); Potassium 4.3 MMOL/L (3.5-5.1)
[2017-12-30 05:02] LABS: INR 3.1
[2017-12-30 05:04] LABS: Hypochromasia 1+; Lymphocytes 3 % (20-55); Platelet Estimate Normal; Segmented Neutrophils 93 % (50-85); Total Cells Counted 100
[2017-12-30 05:05] LABS: PT Patient Result 31.8 SECS
[2017-12-30] MEDS: ESCITALOPRAM 10 MG TABLET PO SCH (09:44)
[2017-12-30] MEDS: CHOLECALCIFEROL 1,000 UNIT TABLET PO SCH (09:44)
[2017-12-30] MEDS: FUROSEMIDE 40 MG TABLET PO SCH (09:45)
[2017-12-30] MEDS: DOCUSATE SODIUM 100 MG CAPSULE PO SCH ×2 (09:45→22:01)
[2017-12-30] MEDS: PANTOPRAZOLE 40 MG TABLET PO SCH (09:45)
[2017-12-30] MEDS: VALSARTAN/HCTZ 160-12.5 MG TABLET PO SCH (09:45)
[2017-12-30] MEDS: POTASSIUM CHLORIDE 20 MEQ TABLET PO SCH ×2 (09:45→22:01)
[2017-12-30] MEDS: TAMSULOSIN 0.4 MG CAPSULE PO SCH (09:45)
[2017-12-30] MEDS: NYSTATIN 500,000 UNIT/5 ML UDCUP SWISH/SWAL SCH ×4 (09:45→22:01)
[2017-12-30] MEDS: FINASTERIDE 5 MG TABLET PO SCH (09:45)
[2017-12-30] MEDS: ASPIRIN EC 325 MG TABLET PO SCH (09:45)
[2017-12-30] MEDS: ZINC OXIDE PASTE 113 GM TUBE TOP SCH ×2 (09:46→22:02)
[2017-12-30] MEDS: METOPROLOL TARTRATE 25 MG TABLET PO SCH ×2 (09:51→22:00)
[2017-12-30] MEDS: LEVOFLOXACIN INJ 500 MG in PREMIX 1 EACH IV SCH (16:41)
[2017-12-30] MEDS: ACETAMINOPHEN 325 MG TABLET PO PRN (22:00)
[2017-12-31] MEDS: ALBUTEROL/IPRATROPIUM 3 ML NEB RESP TX SCH ×6 (00:18→19:19)
[2017-12-31] MEDS: methylPREDNISolone SOD SUC 40 MG/1 ML VIAL IV SCH ×3 (04:58→21:07)
[2017-12-31 05:59] LABS: Calcium 8.1 MG/DL (8.5-10.1); Osmolality,Calculated 299.1 MOS/KG (273-304); Potassium 4.4 MMOL/L (3.5-5.1)
[2017-12-31 06:02] LABS: INR 2.5
[2017-12-31 06:03] LABS: PT Patient Result 25.4 SECS
[2017-12-31] MEDS: CHOLECALCIFEROL 1,000 UNIT TABLET PO SCH (10:20)
[2017-12-31] MEDS: METOPROLOL TARTRATE 25 MG TABLET PO SCH ×2 (10:21→21:09)
[2017-12-31] MEDS: DOCUSATE SODIUM 100 MG CAPSULE PO SCH ×2 (10:21→21:09)
[2017-12-31] MEDS: PANTOPRAZOLE 40 MG TABLET PO SCH (10:21)
[2017-12-31] MEDS: FUROSEMIDE 40 MG TABLET PO SCH (10:21)
[2017-12-31] MEDS: TAMSULOSIN 0.4 MG CAPSULE PO SCH (10:21)
[2017-12-31] MEDS: LEVOFLOXACIN 500 MG TABLET PO SCH (10:21)
[2017-12-31] MEDS: FINASTERIDE 5 MG TABLET PO SCH (10:21)
[2017-12-31] MEDS: VALSARTAN/HCTZ 160-12.5 MG TABLET PO SCH (10:21)
[2017-12-31] MEDS: POTASSIUM CHLORIDE 20 MEQ TABLET PO SCH ×2 (10:22→21:08)
[2017-12-31] MEDS: NYSTATIN 500,000 UNIT/5 ML UDCUP SWISH/SWAL SCH ×4 (10:22→21:09)
[2017-12-31] MEDS: ZINC OXIDE PASTE 113 GM TUBE TOP SCH ×2 (10:22→21:09)
[2017-12-31] MEDS: ASPIRIN EC 325 MG TABLET PO SCH (10:22)
[2017-12-31] MEDS: ESCITALOPRAM 10 MG TABLET PO SCH (10:22)
[2017-12-31] MEDS ORDERED: WARFARIN 2 MG TABLET PO SCH ×2 (18:00)
[2017-12-31] MEDS: ACETAMINOPHEN 325 MG TABLET PO PRN (21:09)
[2017-12-31] MEDS: POLYETHYLENE GLYCOL POWDER 17 GM PACK PO PRN (21:11)
[2018-01-01] MEDS: ALBUTEROL/IPRATROPIUM 3 ML NEB RESP TX SCH ×4 (00:20→10:08)
[2018-01-01] MEDS: methylPREDNISolone SOD SUC 40 MG/1 ML VIAL IV SCH (04:29)
[2018-01-01 05:59] LABS: Basophils % 0.2 % (0.0-0.8); Hematocrit 39.6 VOL% (42.0-52.0); Hemoglobin 13.3 GM/DL (14.0-18.0); Immature Granulocytes % 2.9 %; Immature Granulocytes Absolute 0.59 #; Lymphocytes # 0.6 10*3/uL (1.4-4.0); Mean Corpuscular HGB Conc 33.6 GM/DL (32-36); Mean Corpuscular Hemoglobin 33 PG (27-34); Mean Corpuscular Volume 96.8 FL (87-102); Mean Platelet Volume 12.7 FL (9.6-12.0); Monocytes # 1.5 10*3/uL (0.11-0.8); Monocytes % 7.3 % (1.7-12.7); Neutrophils # 17.7 10*3/uL (1.4-7.4); Neutrophils % 86.6 % (38.7-73.9); Platelet Count 160 T/CUMM (130-400); Red Blood Count 4.09 MC/CUMM (3.8-5.5); Red Cell Distribution Width 14.9 % (9.3-17.3); White Blood Count 20.5 T/CUMM (4-12)
[2018-01-01 06:20] LABS: Band Neutrophils 1 % (0-10); Lymphocytes 5 % (20-55); Platelet Estimate Normal; Segmented Neutrophils 90 % (50-85); Total Cells Counted 100
[2018-01-01 06:21] LABS: Calcium 8.3 MG/DL (8.5-10.1); Osmolality,Calculated 296.4 MOS/KG (273-304); Potassium 4.2 MMOL/L (3.5-5.1)
[2018-01-01 06:28] LABS: INR 2.4; PT Patient Result 24.1 SECS
[2018-01-01] MEDS ORDERED: methylPREDNISolone SOD SUC 40 MG/1 ML VIAL IV SCH (07:30)
[2018-01-01] MEDS: TAMSULOSIN 0.4 MG CAPSULE PO SCH (10:17)
[2018-01-01] MEDS: PANTOPRAZOLE 40 MG TABLET PO SCH (10:17)
[2018-01-01] MEDS: NYSTATIN 500,000 UNIT/5 ML UDCUP SWISH/SWAL SCH ×2 (10:17→12:48)
[2018-01-01] MEDS: VALSARTAN/HCTZ 160-12.5 MG TABLET PO SCH (10:17)
[2018-01-01] MEDS: FINASTERIDE 5 MG TABLET PO SCH (10:18)
[2018-01-01] MEDS: CHOLECALCIFEROL 1,000 UNIT TABLET PO SCH (10:18)
[2018-01-01] MEDS: LEVOFLOXACIN 500 MG TABLET PO SCH (10:18)
[2018-01-01] MEDS: FUROSEMIDE 40 MG TABLET PO SCH (10:18)
[2018-01-01] MEDS: POTASSIUM CHLORIDE 20 MEQ TABLET PO SCH (10:18)
[2018-01-01] MEDS: METOPROLOL TARTRATE 25 MG TABLET PO SCH (10:18)
[2018-01-01] MEDS: ESCITALOPRAM 10 MG TABLET PO SCH (10:19)
[2018-01-01] MEDS: DOCUSATE SODIUM 100 MG CAPSULE PO SCH (10:19)
[2018-01-01] MEDS: ASPIRIN EC 325 MG TABLET PO SCH (10:19)
[2018-01-01] MEDS: ZINC OXIDE PASTE 113 GM TUBE TOP SCH (10:27)
[2018-01-01 11:43] VITALS: BP 113/74
[2018-01-01] MEDS ORDERED: WARFARIN 1 MG TABLET PO SCH (18:00)
== END 2018-01-01 15:20 | DRG 190 ==
LOC: N.TELEN 15:35
PROVIDERS: ADMIT Internal Medicine; ATTEND Internal Medicine